=== PATIENT | female | born 1965 | race Caucasian/White ===

== ENCOUNTER 2020-11-06 18:00 | Inpatient (IN) | payer BC ==
[~2020-11-06] VITALS: Ht 167.6 cm; Wt 45.1 kg
[2020-11-06] MEDS: ringers solution, lacted 1,000 ML IV SCH (00:01)
[~2020-11-06 18:00] MED LIST: etomidate 2mg/ml inj. ONE; rocuronium 10mg/ml inj IV ONE; sod chloride 0.9% 10ml flush syringe IV ONE
[2020-11-06] MEDS ORDERED: propofol 1000mg/100ml bottle 100 ML IV ONE (18:08)
[2020-11-06] MEDS ORDERED: dexamethasone sod phosphate 10mg/ml inj ONE (18:11)
[2020-11-06] MEDS ORDERED: dexamethasone sod phosphate 10mg/ml inj IV ONE (18:25)
[2020-11-06] MEDS ORDERED: magnesium 2GM in 50ml NS 50 ML IV ONE ×2 (18:25→19:28)
[2020-11-06] MEDS ORDERED: MIDAZolam 5mg/ml 2ml vial IV ONE (18:25)
--- NOTE | 2020-11-06 18:33 | NUR ---
1759 arrival, hx of asthma, unresponsive, blood sugar 151, 18g L AC established relief captain. CPR started in field for 10 minutes, 1mg epi given and ROSC. 1803 20mg etomidate IV push given, 100mg memo given IV push. 180 intubated by ERP, 22 at teeth, RT at bedside. 180 OG placed 1812 5mg versed given IV push 1813 temp. sanders placed 1815 10mg decadron given IV push 1817 5mcg/kg/min propofol drip started. 181 central line started right side
--- NOTE | 2020-11-06 18:39 | NUR ---
rate changed down to 2.5mcg/kg/min prop drip.
--- NOTE | 2020-11-06 18:43 | NUR ---
propofol drip stopped. blood pressure 87/57
[2020-11-06 18:44] LABS: BASOPHILS # (AUTO) 0.1 X10'3 (0-0.2); BASOPHILS % (AUTO) 0.6 % (0-1); EOSINOPHILS % (AUTO) 10.2 % (0-6); LYMPHOCYTES # (AUTO) 3.7 X10'3 (1.1-4.8); LYMPHOCYTES % (AUTO) 36.6 % (21-51); MEAN CORPUSCULAR HEMOGLOBIN 31.4 PG (27.0-31.0); MEAN CORPUSCULAR HGB CONC 32.4 g/dL (33.0-36.5); MEAN PLATELET VOLUME 8.6 FL (7.4-10.4); MONOCYTES # (AUTO) 0.5 X10'3 (0-0.9); NEUTROPHILS # (AUTO) 4.8 X10'3 (1.8-7.7); NEUTROPHILS % (AUTO) 47.6 % (42-75); PLATELET COUNT 263 X10'3 (140-440); RED BLOOD COUNT 3.82 X10'6 (4.20-5.60); RED CELL DISTRIBUTION WIDTH 14.5 % (11.5-14.5); WHITE BLOOD COUNT 10.2 X10'3 (4.5-11.0)
--- NOTE | 2020-11-06 18:50 | NUR ---
1L NS bolus started
[2020-11-06 18:55] LABS: ABG BASE EXCESS -10.3 mmol/L (-2.0-2.0); ABG HCO3 15.9 mmol/L (22.0-26.0); ABG OXYGEN SATURATION 97.6 % (94-97); ABG PCO2 (T) 33.8 mmHg (32.0-45.0); ABG PO2 (T) 115.1 mmHg (75.0-100.0); FCOHb 0.3 % (0.0-3.9); FMetHb 0.2 % (0.0-1.5); FO2Hb 97.1 % (94-97); PATIENT TEMPERATURE 35.4; PEEP 5 cm H2O; RESPIRATORY RATE 20 b/min; TIDAL VOLUME 350 mL; TOTAL HEMOGLOBIN 12.6 G/dl (12.0-16.0)
[2020-11-06 18:55] LABS: ALANINE AMINOTRANSFERASE 33 U/L (12-78); ALBUMIN 3.2 G/DL (3.4-5.0); ALKALINE PHOSPHATASE 64 IU/L (46-116); ANION GAP 18 (8-16); ASPARTATE AMINO TRANSFERASE 36 U/L (10-37); BILIRUBIN,TOTAL 0.3 MG/DL (0.1-1.0); BLOOD UREA NITROGEN 10 MG/DL (7-18); BUN/CREATININE RATIO 9.9 (6.6-38.0); CALCIUM 7.9 MG/DL (8.5-10.1); CHLORIDE 103 MMOL/L (99-107); CREATININE 1.01 MG/DL (0.40-0.90); GLUCOSE 338 MG/DL (70-104); SODIUM 139 MMOL/L (135-145); TOTAL CARBON DIOXIDE 18.2 MMOL/L (24-32); TOTAL PROTEIN 6.3 G/DL (6.4-8.2); TRIGLYCERIDES 87 MG/DL (20-135); TROPONIN I < 0.04 NG/ML (0.0-0.05); eGFR 57 ML/MIN
--- NOTE | 2020-11-06 18:57 | NUR ---
Critical Lab: K+ is 2.8. Dr. Knox and primary RN will be notfied.
[2020-11-06 18:58] LABS: POTASSIUM 2.8 MMOL/L (3.5-5.1)
--- NOTE | 2020-11-06 18:59 | NUR ---
pt's at bedside. pt personal items with
[2020-11-06] MEDS: propofol 1000mg/100ml bottle 100 ML IV SCH ×4 (19:03→20:39)
[2020-11-06] MEDS: MIDAZolam 5mg/ml 2ml vial ONE ×2 (19:06→19:45)
[2020-11-06] MEDS ORDERED: normal saline 1000ml 1,000 ML IV ONE (19:10)
--- NOTE | 2020-11-06 19:11 | NUR ---
1L NS bolus given, second bag.
[2020-11-06] MEDS ORDERED: magnesium 2GM in 50ml NS 50 ML IV SCH (19:15)
[2020-11-06] MEDS ORDERED: potassium Cl 20 mEq/100mL bag IV ONE (19:15)
--- NOTE | 2020-11-06 19:18 | NUR ---
blood pressure 78/56, ERP notified, levo ordered.
[2020-11-06] MEDS ORDERED: NORepinephrine inj. 8 MG in dextrose 5%-water 242 ML IV ONE (19:20)
--- NOTE | 2020-11-06 19:25 | NUR ---
levo started by Fede RADER
[2020-11-06] MEDS: potassium Cl 10 mEq/100mL bag IV SCH ×2 (19:26→20:15)
--- NOTE | 2020-11-06 19:29 | NUR ---
appointment scheduler on video
--- NOTE | 2020-11-06 19:31 | NUR ---
report given to Fede RADER.
[2020-11-06 19:46] LABS: HEMOGLOBIN A1C 5.8 % (4.5-6.2)
[2020-11-06 19:54] LABS: PLATELET ESTIMATE NORMAL; TOTAL CELLS COUNTED 100
[2020-11-06 19:57] LABS: SMUDGE CELLS FEW
[2020-11-06] MEDS: NORepinephrine 8mg/ 250ml NS 250 ML IV SCH ×2 (20:10→20:40)
[2020-11-06] MEDS ORDERED: magnesium Cl slow-release 64mg tablet PO PRN (20:40)
[2020-11-06] MEDS ORDERED: magnesium 4gm in 100ml NS 100 ML IV PRN (20:40)
[2020-11-06] MEDS ORDERED: magnesium 2GM in 50ml NS 50 ML IV PRN (20:40)
[2020-11-06] MEDS ORDERED: PERFLUTREN PROTEIN-A MICROSPHR (Optison) 0.22 MG/ML 3ML VIAL IV ONE (20:40)
[2020-11-06] MEDS ORDERED: acetaminophen 325mg tablet PO PRN ×2 (20:40)
[2020-11-06] MEDS ORDERED: sodium phosphate inj. 15 MMOL in dextrose 5%-water 250 ML IV PRN (20:40)
[2020-11-06] MEDS ORDERED: ondansetron/PF 4mg/2ml inj IV PRN (20:40)
[2020-11-06] MEDS ORDERED: Neutra Phos packet PO PRN (20:40)
[2020-11-06] MEDS: K, MAG and/or Phos replacement - Verify level? MC SCH (20:40)
[2020-11-06] MEDS ORDERED: LIDOcaine 2% 10ml TOPICAL JELLY (Urojet) TP ONE (20:40)
[2020-11-06] MEDS ORDERED: potassium Cl 40MEQ/250ML bag 270 ML IV PRN (20:40)
[2020-11-06] MEDS ORDERED: potassium Cl 40MEQ/1/2NS 520ml 520 ML IV PRN (20:40)
[2020-11-06] MEDS ORDERED: sodium phosphate inj. 30 MMOL in dextrose 5%-water 250 ML IV PRN (20:40)
[2020-11-06 21:23] LABS: CLARITY,URINE CLEAR (Clear); GLUCOSE, URINE >=1000 mg/dl (Neg); KETONES,URINE NEGATIVE (Neg); LEUKOCYTE ESTERASE ,URINE NEGATIVE (Neg); NITRITES, URINE NEGATIVE (Neg); OCCULT BLOOD,URINE MODERATE (Neg); PH,URINE 5.5 (4.8-8.0); PROTEIN,URINE TRACE mg/dl (Neg); UROBILINOGEN,URINE 0.2 E.U/dL (0.2-1.0)
[2020-11-06 21:24] LABS: COLOR,URINE STRAW (Yellow); UA COLLECTION TYPE OTHER
[2020-11-06 21:26] LABS: URINE HCG NEGATIVE (NEG)
[2020-11-06 21:34] LABS: WBC,URINE 0-4 /HPF (0-4)
[2020-11-06 21:35] LABS: BACTERIA,URINE NONE SEEN /HPF (Neg); HYALINE CASTS 0-3 /LPF (NEGATIVE); MUCUS STRANDS FEW /LPF (Neg); RBC,URINE 0-2 /HPF (0-2); SQUAMOUS EPITHELIAL CELL,UR NONE SEEN /LPF (FEW)
[2020-11-06 22:34] LABS: MAGNESIUM 2.6 MG/DL (1.5-2.4)
[2020-11-06 22:49] LABS: ALBUMIN 3.6 G/DL (3.4-5.0); ANION GAP 11 (8-16); BLOOD UREA NITROGEN 11 MG/DL (7-18); BUN/CREATININE RATIO 14.5 (6.6-38.0); CALCIUM 7.5 MG/DL (8.5-10.1); CHLORIDE 104 MMOL/L (99-107); CREATININE 0.76 MG/DL (0.40-0.90); GLUCOSE 332 MG/DL (70-104); MAGNESIUM 3.4 MG/DL (1.5-2.4); PHOSPHORUS 2.1 MG/DL (2.3-4.5); POTASSIUM 3.9 MMOL/L (3.5-5.1); SODIUM 136 MMOL/L (135-145); TOTAL CARBON DIOXIDE 20.8 MMOL/L (24-32); eGFR 79 ML/MIN
[2020-11-06 23:30] VITALS: BP 128/85
[2020-11-07] VITALS (24 sets, daily range): BP systolic 91–148; BP diastolic 64–91
[2020-11-07 00:46] LABS: ALANINE AMINOTRANSFERASE 57 U/L (12-78); ALBUMIN 3.4 G/DL (3.4-5.0); ALKALINE PHOSPHATASE 76 IU/L (46-116); ANION GAP 11 (8-16); ASPARTATE AMINO TRANSFERASE 58 U/L (10-37); BILIRUBIN,TOTAL 0.4 MG/DL (0.1-1.0); BLOOD UREA NITROGEN 10 MG/DL (7-18); BUN/CREATININE RATIO 14.9 (6.6-38.0); CALCIUM 7.5 MG/DL (8.5-10.1); CHLORIDE 104 MMOL/L (99-107); CREATININE 0.67 MG/DL (0.40-0.90); GLUCOSE 331 MG/DL (70-104); PHOSPHORUS 2.6 MG/DL (2.3-4.5); POTASSIUM 3.6 MMOL/L (3.5-5.1); SODIUM 134 MMOL/L (135-145); TOTAL CARBON DIOXIDE 19.2 MMOL/L (24-32); TOTAL PROTEIN 6.8 G/DL (6.4-8.2); eGFR > 90 ML/MIN
[2020-11-07 01:00] LABS: BASOPHILS % (AUTO) 0.1 % (0-1); EOSINOPHILS % (AUTO) 0.2 % (0-6); HEMOGLOBIN 12.8 g/dl (12.0-16.0); LYMPHOCYTES # (AUTO) 0.5 X10'3 (1.1-4.8); LYMPHOCYTES % (AUTO) 3.1 % (21-51); MEAN CORPUSCULAR HEMOGLOBIN 31.3 PG (27.0-31.0); MEAN CORPUSCULAR HGB CONC 33.6 g/dL (33.0-36.5); MEAN CORPUSCULAR VOLUME 93.2 FL (78-98); MEAN PLATELET VOLUME 8.3 FL (7.4-10.4); MONOCYTES # (AUTO) 0.5 X10'3 (0-0.9); MONOCYTES % (AUTO) 3.2 % (2-12); NEUTROPHILS # (AUTO) 14.2 X10'3 (1.8-7.7); NEUTROPHILS % (AUTO) 93.4 % (42-75); PLATELET COUNT 284 X10'3 (140-440); RED BLOOD COUNT 4.08 X10'6 (4.20-5.60); RED CELL DISTRIBUTION WIDTH 13.7 % (11.5-14.5); WHITE BLOOD COUNT 15.3 X10'3 (4.5-11.0)
[2020-11-07 01:06] LABS: TRIGLYCERIDES 91 MG/DL (20-135)
[2020-11-07] MEDS: ipratropium/albuterol 3ml nebule NEB SCH ×7 (01:07→23:29)
[2020-11-07] MEDS: NORepinephrine 8mg/ 250ml NS 250 ML IV SCH ×2 (01:32→08:24)
[2020-11-07] MEDS ORDERED: LORazepam 2 mg/ml vial IV ONE (02:05)
[2020-11-07] MEDS ORDERED: LORazepam 2 mg/ml vial ONE (02:06)
[2020-11-07] MEDS ORDERED: MIDAZolam inj 50 MG in normal saline 50ml IV soln 40 ML IV SCH (02:10)
[2020-11-07] MEDS ORDERED: LORazepam 2 mg/ml vial IM PRN (02:10)
[2020-11-07] MEDS: midazolam 100mg in NS 100ml 100 ML IV PRN (02:30)
[2020-11-07] MEDS: propofol 1000mg/100ml bottle 100 ML IV SCH (02:44)
[2020-11-07 03:08] LABS: ABG BASE EXCESS -7.3 mmol/L (-2.0-2.0); ABG HCO3 16.1 mmol/L (22.0-26.0); ABG PCO2 (T) 22.8 mmHg (32.0-45.0); ABG PO2 (T) 152.3 mmHg (75.0-100.0); FCOHb 0.3 % (0.0-3.9); FMetHb 0.3 % (0.0-1.5); FO2Hb 98.4 % (94-97); PATIENT TEMPERATURE 32.8; PEEP 5 cm H2O; RESPIRATORY RATE 20 b/min; TIDAL VOLUME 350 mL; TOTAL HEMOGLOBIN 13.4 G/dl (12.0-16.0)
[2020-11-07 03:11] LABS: OXYGEN SATURATION (MIXED VEN) 77.8 % (60-80); PO2 MIXED VENOUS (TEMP COR) 30.9 mmHg (35-46)
[2020-11-07] MEDS: mineral oil/petrolatum ophthal oint EACHEYE SCH ×6 (04:00→20:30)
[2020-11-07] MEDS: ringers solution, lacted 1,000 ML IV SCH ×3 (04:00→17:09)
[2020-11-07] MEDS ORDERED: dextrose ORAL solution 15 GM/59 ML bottle PO PRN ×2 (05:05)
[2020-11-07] MEDS ORDERED: dextrose 50%-water 50ml dispensing syringe IV PRN ×2 (05:05)
[2020-11-07] MEDS ORDERED: glucagon, human recombinant 1mg kit SUBCUT PRN (05:05)
[2020-11-07 05:55] LABS: BASOPHILS % (AUTO) 0 % (0-1); EOSINOPHILS % (AUTO) 0.2 % (0-6); HEMATOCRIT 38.5 % (35.0-45.0); HEMOGLOBIN 12.9 g/dl (12.0-16.0); LYMPHOCYTES # (AUTO) 0.5 X10'3 (1.1-4.8); MEAN CORPUSCULAR HGB CONC 33.4 g/dL (33.0-36.5); MEAN CORPUSCULAR VOLUME 92.9 FL (78-98); MONOCYTES # (AUTO) 0.3 X10'3 (0-0.9); MONOCYTES % (AUTO) 2.4 % (2-12); NEUTROPHILS # (AUTO) 11.4 X10'3 (1.8-7.7); NEUTROPHILS % (AUTO) 93.4 % (42-75); PLATELET COUNT 303 X10'3 (140-440); RED BLOOD COUNT 4.15 X10'6 (4.20-5.60); RED CELL DISTRIBUTION WIDTH 13.5 % (11.5-14.5); WHITE BLOOD COUNT 12.2 X10'3 (4.5-11.0)
[2020-11-07 06:13] LABS: ALANINE AMINOTRANSFERASE 55 U/L (12-78); ALBUMIN 3.2 G/DL (3.4-5.0); ALKALINE PHOSPHATASE 74 IU/L (46-116); ANION GAP 11 (8-16); ASPARTATE AMINO TRANSFERASE 43 U/L (10-37); BILIRUBIN,TOTAL 0.3 MG/DL (0.1-1.0); BLOOD UREA NITROGEN 11 MG/DL (7-18); BUN/CREATININE RATIO 16.7 (6.6-38.0); CALCIUM 7.8 MG/DL (8.5-10.1); CHLORIDE 106 MMOL/L (99-107); CREATININE 0.66 MG/DL (0.40-0.90); GLUCOSE 308 MG/DL (70-104); POTASSIUM 4.9 MMOL/L (3.5-5.1); SODIUM 135 MMOL/L (135-145); TOTAL CARBON DIOXIDE 18.2 MMOL/L (24-32); TOTAL PROTEIN 6.5 G/DL (6.4-8.2); eGFR > 90 ML/MIN
[2020-11-07 06:23] LABS: MAGNESIUM 2.6 MG/DL (1.5-2.4); PHOSPHORUS 2.3 MG/DL (2.3-4.5)
[2020-11-07] MEDS: potassium Cl 40MEQ/250ML bag 270 ML IV PRN ×2 (06:26→15:35)
--- NOTE | 2020-11-07 06:30 | NUR ---
Patient in room ICU 2041. I have received report from Deuce RADER and had the opportunity to ask questions and assume patient care.
[2020-11-07] MEDS ORDERED: CISatracurium **Bolus** 2 mg/ml inj IV PRN (07:45)
[2020-11-07] MEDS ORDERED: famotidine 20mg tablet PO SCH (08:00)
[2020-11-07] MEDS: K, MAG and/or Phos replacement - Verify level? MC SCH (08:00)
[2020-11-07] MEDS ORDERED: enoxaparin 40mg/0.4ml syringe SUBCUT SCH (08:00)
[2020-11-07 08:05] LABS: ALBUMIN 3.2 G/DL (3.4-5.0); ANION GAP 10 (8-16); BLOOD UREA NITROGEN 10 MG/DL (7-18); BUN/CREATININE RATIO 14.1 (6.6-38.0); CALCIUM 7.9 MG/DL (8.5-10.1); CHLORIDE 110 MMOL/L (99-107); CREATININE 0.71 MG/DL (0.40-0.90); GLUCOSE 220 MG/DL (70-104); MAGNESIUM 2.6 MG/DL (1.5-2.4); POTASSIUM 5.3 MMOL/L (3.5-5.1); SODIUM 139 MMOL/L (135-145); TOTAL CARBON DIOXIDE 18.6 MMOL/L (24-32); TRIGLYCERIDES 49 MG/DL (20-135); eGFR 85 ML/MIN
[2020-11-07] MEDS: famotidine/PF 10 mg/ml inj IV SCH ×2 (08:21→20:30)
[2020-11-07] MEDS: methylPREDNISolone sod succ/PF 40mg inj. IV SCH ×2 (08:21→20:30)
[2020-11-07] MEDS: FENTANYL-0.9 % NACL/PF 100 ML IV PRN (08:21)
[2020-11-07 09:27] LABS: OXYGEN SATURATION (MIXED VEN) 75.7 % (60-80); PO2 MIXED VENOUS (TEMP COR) 30.7 mmHg (35-46)
[2020-11-07 09:29] LABS: ABG BASE EXCESS -6.2 mmol/L (-2.0-2.0); ABG HCO3 17.7 mmol/L (22.0-26.0); ABG PCO2 (T) 26.1 mmHg (32.0-45.0); ABG PO2 (T) 145.8 mmHg (75.0-100.0); FCOHb 0.3 % (0.0-3.9); FMetHb 0.2 % (0.0-1.5); FO2Hb 98.5 % (94-97); PATIENT TEMPERATURE 33.2; PEEP 5 cm H2O; RESPIRATORY RATE 20 b/min; TIDAL VOLUME 350 mL; TOTAL HEMOGLOBIN 13.8 G/dl (12.0-16.0)
[2020-11-07] MEDS ORDERED: ALBU18HF2 IH (10:00)
[2020-11-07] MEDS: CISatracurium besylate inj. 100 MG in normal saline 100ml IV soln 90 ML IV PRN (10:35)
[2020-11-07] MEDS ORDERED: levetiracetam-NS 1000mg/100ml 100 ML IV STA (10:54)
--- NOTE | 2020-11-07 10:58 | NUR ---
Initial: Pt with h/o asthma admitted s/p cardiac arrest. Pt emergently intubated in ED, currently being cooled. Serum K elevated at this time following replacement d/t hypokalemia on admit. Pt documented with an OG tube in place, no TF consult at this time. See TF recommendations below for if expected prolonged intubation and to receive nutrition support. Noted pt with a low BMI using scaled wt of 44.5 kg. No wt hx in EMR and unable to obtain information from pt d/t intubation. Poor visualization of pt during critical care rounds d/t blankets and EEG monitor. Pt appears well developed and well nourished per ED report. Pt with a low Cuauhtemoc of 10, no edema or wounds per physical assessment. LBM 6/10, PRN bowel care available. Will continue to follow closely. Recommendations: 1) IF TF, continuous Vital AF with goal rate of 60 mL/hr. To begin at 20 mL/hr and advance by 20 mL Q8H as tolerated to goal rate 2) IF TF, prealbumin q Tuesday/; daily weights 3) Routine bowel care Addendum: 11/07/20 at [address] Amended: Links added.
[2020-11-07 12:44] LABS: CLARITY,URINE SLIGHTLY CLOUDY (Clear); COLOR,URINE STRAW (Yellow); GLUCOSE, URINE 100 mg/dl (Neg); KETONES,URINE 15 mg/dl (Neg); LEUKOCYTE ESTERASE ,URINE NEGATIVE (Neg); NITRITES, URINE NEGATIVE (Neg); OCCULT BLOOD,URINE LARGE (Neg); PH,URINE 6.5 (4.8-8.0); PROTEIN,URINE NEGATIVE (Neg); UROBILINOGEN,URINE 0.2 E.U/dL (0.2-1.0)
[2020-11-07 12:45] LABS: UA COLLECTION TYPE NON-SPECIFIED
[2020-11-07 13:02] LABS: BACTERIA,URINE NONE SEEN /HPF (Neg); MUCUS STRANDS NONE SEEN /LPF (Neg); RBC,URINE 20-50 /HPF (0-2); SQUAMOUS EPITHELIAL CELL,UR NONE SEEN /LPF (FEW); WBC,URINE NONE SEEN /HPF (0-4)
[2020-11-07 13:37] LABS: ALBUMIN 3.4 G/DL (3.4-5.0); ANION GAP 12 (8-16); BLOOD UREA NITROGEN 7 MG/DL (7-18); BUN/CREATININE RATIO 23.3 (6.6-38.0); CALCIUM 8.3 MG/DL (8.5-10.1); CHLORIDE 107 MMOL/L (99-107); GLUCOSE 148 MG/DL (70-104); MAGNESIUM 2.1 MG/DL (1.5-2.4); POTASSIUM 3.2 MMOL/L (3.5-5.1); SODIUM 138 MMOL/L (135-145); TOTAL CARBON DIOXIDE 19.3 MMOL/L (24-32); eGFR > 90 ML/MIN
[2020-11-07 15:25] LABS: OXYGEN SATURATION (MIXED VEN) 68.1 % (60-80); PO2 MIXED VENOUS (TEMP COR) 23.8 mmHg (35-46)
[2020-11-07 15:27] LABS: ABG BASE EXCESS -3.5 mmol/L (-2.0-2.0); ABG HCO3 19.1 mmol/L (22.0-26.0); ABG OXYGEN SATURATION 98.5 % (94-97); ABG PCO2 (T) 22.7 mmHg (32.0-45.0); ABG PO2 (T) 106.6 mmHg (75.0-100.0); FCOHb 0.3 % (0.0-3.9); FMetHb 0.3 % (0.0-1.5); FO2Hb 97.9 % (94-97); PATIENT TEMPERATURE 32.3; PEEP 5 cm H2O; RESPIRATORY RATE 20 b/min; TIDAL VOLUME 350 mL; TOTAL HEMOGLOBIN 13.6 G/dl (12.0-16.0)
[2020-11-07] MEDS ORDERED: heparin 10,000 units/1 ML INJ IV PRN (15:55)
[2020-11-07] MEDS ORDERED: aspirin 325mg tablet OGT ONE (15:55)
[2020-11-07] MEDS ORDERED: heparin 10,000 units/1 ML INJ IV ONE (16:25)
[2020-11-07] MEDS: heparin 25,000 UNIT/250ml bag 250 ML IV SCH (16:39)
[2020-11-07 17:28] LABS: COLOR,URINE STRAW (Yellow); GLUCOSE, URINE 100 mg/dl (Neg); KETONES,URINE TRACE mg/dl (Neg); LEUKOCYTE ESTERASE ,URINE NEGATIVE (Neg); NITRITES, URINE NEGATIVE (Neg); OCCULT BLOOD,URINE LARGE (Neg); PROTEIN,URINE NEGATIVE (Neg); UROBILINOGEN,URINE 0.2 E.U/dL (0.2-1.0)
[2020-11-07 17:29] LABS: CLARITY,URINE SLIGHTLY CLOUDY (Clear); UA COLLECTION TYPE NON-SPECIFIED
[2020-11-07 17:32] LABS: BACTERIA,URINE NONE SEEN /HPF (Neg); MUCUS STRANDS NONE SEEN /LPF (Neg); SQUAMOUS EPITHELIAL CELL,UR FEW /LPF (FEW); WBC,URINE NONE SEEN /HPF (0-4)
--- NOTE | 2020-11-07 17:43 | NUR ---
Patient with PERRL 4 mm. Noted at the beginning of the shift with vigorous shivering. Started on Nimbex drip. After shivering controlled, able to detect seizure activity with BIS monitor. EEG monitoring started and tele neurology consulted. Seizure activity noted and Keppra started. Targeted temperature management in process. Patient at goal temperature. EF 15%. Dr. Cartwright in to consult.
[2020-11-07] MEDS: LORazepam 2 mg/ml vial IV PRN (18:03)
--- NOTE | 2020-11-07 18:28 | NUR ---
Problems reprioritized. Patient report given, questions answered & plan of care reviewed with Juli RADER.
--- NOTE | 2020-11-07 18:30 | NUR ---
Patient in room ICU 2041. I have received report from Zayra RADER and had the opportunity to ask questions and assume patient care. Pt's remains at bedside, plan of care discussed and questions answered.
[2020-11-07 19:59] LABS: ALBUMIN 3.1 G/DL (3.4-5.0); ANION GAP 9 (8-16); BLOOD UREA NITROGEN 5 MG/DL (7-18); BUN/CREATININE RATIO 17.2 (6.6-38.0); CALCIUM 8.1 MG/DL (8.5-10.1); CHLORIDE 108 MMOL/L (99-107); CREATININE 0.29 MG/DL (0.40-0.90); GLUCOSE 127 MG/DL (70-104); MAGNESIUM 1.8 MG/DL (1.5-2.4); POTASSIUM 3.9 MMOL/L (3.5-5.1); SODIUM 138 MMOL/L (135-145); eGFR > 90 ML/MIN
[2020-11-07] MEDS ORDERED: enoxaparin 40mg/0.4ml syringe SQ SCH (20:00)
[2020-11-07] MEDS: carVEDilol 3.125mg tablet OGT SCH (20:30)
[2020-11-07] MEDS: levetiracetam-NS 1000mg/100ml 100 ML IV SCH (20:30)
[2020-11-07] MEDS: atorvastatin 20mg tablet OGT SCH (20:32)
[2020-11-07 20:35] LABS: PHOSPHORUS 2.8 MG/DL (2.3-4.5)
--- NOTE | 2020-11-07 23:33 | NUR ---
Called to bedside for low volumes on vent Addendum: 11/07/20 at 2346 by Bill Dorantes RT Low volumes with high pressures. Patient doifficult to bag. Breath sounds clear/diminished. CXR done with nothing of note. Nebulizer treatment started with improvement in volumes. Breath now wheezy and tight. DIOR contacted , new orders to follow. Addendum: 11/07/20 at 2348 by Bill Dorantes RT Amended: Links added.
--- NOTE | 2020-11-07 23:41 | NUR ---
Pt turned to remove cooling pads when she suddenly was not getting her Tidal Volumes. Began to bag pt and RT was paged. Pt was difficult to bag, very tight. No secretions with deep suction, lung sounds diminished. Tube placement checked, X ray done. Respiratory treatment started. Pt's lung sounds now tight and wheezy. notified and new orders received.
[2020-11-08] VITALS (24 sets, daily range): BP systolic 84–119; BP diastolic 50–72
[2020-11-08 00:08] LABS: OXYGEN SATURATION (MIXED VEN) 71.2 % (60-80); PO2 MIXED VENOUS (TEMP COR) 29.6 mmHg (35-46)
[2020-11-08 00:12] LABS: ABG BASE EXCESS -5.6 mmol/L (-2.0-2.0); ABG HCO3 20.5 mmol/L (22.0-26.0); ABG OXYGEN SATURATION 88.9 % (94-97); ABG PCO2 (T) 35.1 mmHg (32.0-45.0); FCOHb 0.3 % (0.0-3.9); FMetHb 0.2 % (0.0-1.5); FO2Hb 88.5 % (94-97); PATIENT TEMPERATURE 32.6; PEEP 5 cm H2O; RESPIRATORY RATE 20 b/min; TIDAL VOLUME 350 mL; TOTAL HEMOGLOBIN 13.5 G/dl (12.0-16.0)
[2020-11-08] MEDS: albuterol 2.5 MG/3 ML nebule CONTNEB PRN ×2 (00:23→03:48)
[2020-11-08] MEDS: midazolam 100mg in NS 100ml 100 ML IV PRN (00:34)
[2020-11-08] MEDS: LORazepam 2 mg/ml vial IV PRN (00:34)
[2020-11-08] MEDS: FENTANYL-0.9 % NACL/PF 100 ML IV PRN (00:34)
[2020-11-08] MEDS: mineral oil/petrolatum ophthal oint EACHEYE SCH ×6 (00:34→19:16)
[2020-11-08] MEDS: ringers solution, lacted 1,000 ML IV SCH ×3 (00:35→08:59)
[2020-11-08] MEDS: CISatracurium besylate inj. 100 MG in normal saline 100ml IV soln 90 ML IV PRN (02:05)
--- NOTE | 2020-11-08 02:14 | NUR ---
Pt has not improved, needs to be bagged for her to get volumes. Dr Jefferson aware, new orders being placed. Levophed restarted for low BP.
[2020-11-08 02:17] LABS: BASOPHILS % (AUTO) 0 % (0-1); EOSINOPHILS % (AUTO) 0.1 % (0-6); HEMATOCRIT 36.3 % (35.0-45.0); HEMOGLOBIN 11.9 g/dl (12.0-16.0); LYMPHOCYTES # (AUTO) 0.7 X10'3 (1.1-4.8); LYMPHOCYTES % (AUTO) 5.1 % (21-51); MEAN CORPUSCULAR HEMOGLOBIN 30.6 PG (27.0-31.0); MEAN CORPUSCULAR HGB CONC 32.7 g/dL (33.0-36.5); MEAN CORPUSCULAR VOLUME 93.6 FL (78-98); MONOCYTES # (AUTO) 0.5 X10'3 (0-0.9); MONOCYTES % (AUTO) 3.6 % (2-12); NEUTROPHILS # (AUTO) 13.2 X10'3 (1.8-7.7); NEUTROPHILS % (AUTO) 91.2 % (42-75); PLATELET COUNT 243 X10'3 (140-440); RED BLOOD COUNT 3.88 X10'6 (4.20-5.60); RED CELL DISTRIBUTION WIDTH 14.2 % (11.5-14.5); WHITE BLOOD COUNT 14.5 X10'3 (4.5-11.0)
[2020-11-08] MEDS ORDERED: magnesium 4gm in 100ml NS 100 ML IV ONE (02:20)
[2020-11-08] MEDS ORDERED: methylPREDNISolone sod succ 125mg/2ml vial IV ONE (02:20)
[2020-11-08] MEDS: ipratropium/albuterol 3ml nebule NEB SCH ×6 (02:28→23:00)
--- NOTE | 2020-11-08 02:50 | NUR ---
Pt continues to have facial twitching, possible seizure activity? Versed has been increased and Ativan given once with minimal improvement. Pt is in rewarming stage, Vent heater turned back on, room temp increased and blankets applied, however pt is dropping in temp rather than increasing. aware.
[2020-11-08 02:56] LABS: ALANINE AMINOTRANSFERASE 34 U/L (12-78); ALBUMIN 2.6 G/DL (3.4-5.0); ALKALINE PHOSPHATASE 54 IU/L (46-116); ANION GAP 10 (8-16); ASPARTATE AMINO TRANSFERASE 33 U/L (10-37); BILIRUBIN,TOTAL 0.3 MG/DL (0.1-1.0); BLOOD UREA NITROGEN 5 MG/DL (7-18); CALCIUM 7.4 MG/DL (8.5-10.1); CHLORIDE 108 MMOL/L (99-107); CHOL/HDL RATIO 2.9 (0.00-4.99); CHOLESTEROL 175 MG/DL (0-200); CREATININE 0.25 MG/DL (0.40-0.90); GLUCOSE 148 MG/DL (70-104); HDL CHOLESTEROL 61 MG/DL (35-60); LDL CHOLESTEROL 95 MG/DL (50-100); MAGNESIUM 1.7 MG/DL (1.5-2.4); PHOSPHORUS 3.5 MG/DL (2.3-4.5); SODIUM 139 MMOL/L (135-145); TOTAL CARBON DIOXIDE 20.7 MMOL/L (24-32); TOTAL PROTEIN 5.3 G/DL (6.4-8.2); TRIGLYCERIDES 76 MG/DL (20-135); eGFR > 90 ML/MIN
[2020-11-08 04:31] LABS: ABG BASE EXCESS -7.5 mmol/L (-2.0-2.0); ABG HCO3 19.8 mmol/L (22.0-26.0); ABG OXYGEN SATURATION 99.3 % (94-97); ABG PO2 (T) 238.8 mmHg (75.0-100.0); FCOHb 0.3 % (0.0-3.9); FMetHb 0.4 % (0.0-1.5); FO2Hb 98.6 % (94-97); PATIENT TEMPERATURE 32.8; PEEP 5 cm H2O; RESPIRATORY RATE 20 b/min; TIDAL VOLUME 350 mL; TOTAL HEMOGLOBIN 13.3 G/dl (12.0-16.0)
[2020-11-08] MEDS ORDERED: sodium bicarbonate (8.4%) inj. 150 MEQ in dextrose 5%-water 1,000 ML IV SCH (04:40)
[2020-11-08] MEDS: albuterol 2.5 MG/3 ML nebule CONTNEB SCH ×18 (04:56→23:35)
[2020-11-08 05:15] LABS: ABG BASE EXCESS -6.8 mmol/L (-2.0-2.0); ABG OXYGEN SATURATION 99.2 % (94-97); ABG PCO2 (T) 32.7 mmHg (32.0-45.0); ABG PO2 (T) 213.2 mmHg (75.0-100.0); FCOHb 0.3 % (0.0-3.9); FMetHb 0.3 % (0.0-1.5); FO2Hb 98.6 % (94-97); PATIENT TEMPERATURE 32.9; PEEP 5 cm H2O; RESPIRATORY RATE 18 b/min; TIDAL VOLUME 400 mL; TOTAL HEMOGLOBIN 13.4 G/dl (12.0-16.0)
--- NOTE | 2020-11-08 05:58 | NUR ---
Orders received after morning rounds. Pt continues to need bagged intermittently when she does not get her TV from the vent.
--- NOTE | 2020-11-08 06:19 | NUR ---
Problems reprioritized. Patient report given, questions answered & plan of care reviewed with Zayra RADER.
[2020-11-08] MEDS: methylPREDNISolone sod succ/PF 40mg inj. IV SCH ×2 (07:41→20:15)
[2020-11-08] MEDS: famotidine/PF 10 mg/ml inj IV SCH ×2 (07:41→20:15)
[2020-11-08] MEDS: aspirin 81mg tab.chew OGT SCH (07:41)
[2020-11-08] MEDS: carVEDilol 3.125mg tablet OGT SCH ×2 (07:49→20:00)
[2020-11-08] MEDS: K, MAG and/or Phos replacement - Verify level? MC SCH (08:00)
[2020-11-08] MEDS: levetiracetam-NS 1000mg/100ml 100 ML IV SCH ×2 (08:11→20:15)
[2020-11-08] MEDS ORDERED: magnesium 2GM in 50ml NS 50 ML IV PRN (08:20)
[2020-11-08] MEDS ORDERED: magnesium 4gm in 100ml NS 100 ML IV PRN (08:20)
[2020-11-08 08:33] LABS: ABG BASE EXCESS -5.9 mmol/L (-2.0-2.0); ABG HCO3 20.4 mmol/L (22.0-26.0); ABG OXYGEN SATURATION 95.4 % (94-97); ABG PCO2 (T) 37.2 mmHg (32.0-45.0); ABG PO2 (T) 67.8 mmHg (75.0-100.0); ALLEN'S TEST Modified; FCOHb 0.3 % (0.0-3.9); FMetHb 0.3 % (0.0-1.5); FO2Hb 94.8 % (94-97); PATIENT TEMPERATURE 33.5; PEEP 5 cm H2O; RESPIRATORY RATE 18 b/min; TIDAL VOLUME 370 mL; TOTAL HEMOGLOBIN 12.7 G/dl (12.0-16.0)
[2020-11-08] MEDS: propofol 1000mg/100ml bottle 100 ML IV SCH ×3 (09:11→23:19)
[2020-11-08 09:12] LABS: ALBUMIN 2.5 G/DL (3.4-5.0); ANION GAP 9 (8-16); BLOOD UREA NITROGEN 6 MG/DL (7-18); CALCIUM 7.5 MG/DL (8.5-10.1); CHLORIDE 107 MMOL/L (99-107); CREATININE 0.43 MG/DL (0.40-0.90); GLUCOSE 250 MG/DL (70-104); MAGNESIUM 2.7 MG/DL (1.5-2.4); PHOSPHORUS 3.7 MG/DL (2.3-4.5); POTASSIUM 3.5 MMOL/L (3.5-5.1); SODIUM 139 MMOL/L (135-145); TOTAL CARBON DIOXIDE 22.6 MMOL/L (24-32); eGFR > 90 ML/MIN
[2020-11-08 09:17] LABS: TROPONIN I 1.73 NG/ML (0.0-0.05)
[2020-11-08] MEDS: NORepinephrine 8mg/ 250ml NS 250 ML IV SCH ×3 (09:50→20:29)
[2020-11-08] MEDS: lisinopril 2.5mg tablet PO SCH (11:57)
[2020-11-08] MEDS ORDERED: normal saline 1000ml 1,000 ML IV ONE (12:45)
[2020-11-08] MEDS: sodium chloride 0.45% 1,000 ML IV SCH ×4 (12:45→22:14)
[2020-11-08] MEDS: normal saline 1000ml 1,000 ML IV SCH ×3 (13:20→19:14)
[2020-11-08 14:08] LABS: ALBUMIN 2.5 G/DL (3.4-5.0); ANION GAP 7 (8-16); BLOOD UREA NITROGEN 6 MG/DL (7-18); BUN/CREATININE RATIO 12.8 (6.6-38.0); CHLORIDE 110 MMOL/L (99-107); CREATININE 0.47 MG/DL (0.40-0.90); GLUCOSE 231 MG/DL (70-104); MAGNESIUM 2.3 MG/DL (1.5-2.4); PHOSPHORUS 3.3 MG/DL (2.3-4.5); POTASSIUM 3.7 MMOL/L (3.5-5.1); SODIUM 141 MMOL/L (135-145); TOTAL CARBON DIOXIDE 24.2 MMOL/L (24-32); eGFR > 90 ML/MIN
[2020-11-08] MEDS: potassium Cl 20mEq/100mL bag 100 ML IV PRN (14:23)
[2020-11-08 14:25] LABS: ALANINE AMINOTRANSFERASE 35 U/L (12-78); ALBUMIN/GLOBULIN RATIO 0.9 (1.1-1.5); ALKALINE PHOSPHATASE 52 IU/L (46-116); ASPARTATE AMINO TRANSFERASE 41 U/L (10-37); BILIRUBIN,TOTAL 0.2 MG/DL (0.1-1.0); TOTAL PROTEIN 5.2 G/DL (6.4-8.2)
[2020-11-08 14:52] LABS: TROPONIN I 1.77 NG/ML (0.0-0.05)
[2020-11-08] MEDS: guaiFENesin/DM 10ml UD oral syrup OGT SCH ×2 (16:57→20:16)
[2020-11-08 17:07] LABS: ABG BASE EXCESS -2.7 mmol/L (-2.0-2.0); ABG HCO3 21.6 mmol/L (22.0-26.0); ABG OXYGEN SATURATION 98.7 % (94-97); ABG PCO2 (T) 33.7 mmHg (32.0-45.0); ABG PO2 (T) 155.7 mmHg (75.0-100.0); FCOHb 0.3 % (0.0-3.9); FMetHb 0.3 % (0.0-1.5); FO2Hb 98.1 % (94-97); PATIENT TEMPERATURE 35.6; PEEP 5 cm H2O; RESPIRATORY RATE 16 b/min; TIDAL VOLUME 535 mL; TOTAL HEMOGLOBIN 11.8 G/dl (12.0-16.0)
--- NOTE | 2020-11-08 17:41 | NUR ---
pt not ventilating on ventilator and is getting increasingly harder to bad 7ml albuterol instilled directly into ETT. post continuous bagging approx 4minutes pt sats increased from 89-[address] and was able [address] pt back on ventilator. Addendum: 11/08/20 at 1743 by Kinsey Ng RT Amended: Links added.
--- NOTE | 2020-11-08 18:11 | NUR ---
Pupils still reactive, sluggish. No response to noxious stimuli. Continues to have episodes of severe bronchospasms, increased with repositioning. Nimbex off, passive re-warming in progress. Continuous EEG monitoring continues.
--- NOTE | 2020-11-08 18:30 | NUR ---
Patient in room ICU 2041. I have received report from Zayra RADER and had the opportunity to ask questions and assume patient care.
[2020-11-08] MEDS: atorvastatin 20mg tablet OGT SCH (20:16)
[2020-11-08] MEDS ORDERED: polyethylene glycol 3350 17gm powd pack PO PRN (20:40)
[2020-11-08 20:50] LABS: ALANINE AMINOTRANSFERASE 35 U/L (12-78); ALBUMIN 2.6 G/DL (3.4-5.0); ALKALINE PHOSPHATASE 52 IU/L (46-116); ANION GAP 8 (8-16); ASPARTATE AMINO TRANSFERASE 44 U/L (10-37); BILIRUBIN,TOTAL 0.1 MG/DL (0.1-1.0); CHLORIDE 112 MMOL/L (99-107); CREATININE 0.39 MG/DL (0.40-0.90); GLUCOSE 167 MG/DL (70-104); SODIUM 143 MMOL/L (135-145); TOTAL CARBON DIOXIDE 22.7 MMOL/L (24-32); TOTAL PROTEIN 5.3 G/DL (6.4-8.2); eGFR > 90 ML/MIN
[2020-11-08 21:05] LABS: BLOOD UREA NITROGEN 4 MG/DL (7-18); BUN/CREATININE RATIO 10.3 (6.6-38.0)
[2020-11-08 21:42] LABS: MAGNESIUM 2.2 MG/DL (1.5-2.4); PHOSPHORUS 2.5 MG/DL (2.3-4.5)
[2020-11-09] VITALS (24 sets, daily range): BP systolic 94–121; BP diastolic 49–68
[2020-11-09] MEDS: guaiFENesin/DM 10ml UD oral syrup OGT SCH ×6 (00:02→21:11)
[2020-11-09] MEDS: mineral oil/petrolatum ophthal oint EACHEYE SCH ×6 (00:02→20:00)
[2020-11-09] MEDS: FENTANYL-0.9 % NACL/PF 100 ML IV PRN ×2 (00:02→21:36)
[2020-11-09] MEDS: sodium chloride 0.45% 1,000 ML IV SCH ×4 (00:13→06:38)
[2020-11-09] MEDS: normal saline 1000ml 1,000 ML IV SCH ×6 (00:13→11:14)
--- NOTE | 2020-11-09 00:28 | NUR ---
Pt had been doing well with recovering from bronchospasms on the vent, had not required manual bagging. She has had Minimal stimulation and pt has not been turned due to instability. Bed/mattress support has been adjusted frequently in attempts to change pressure points without moving her from Sitting (neuro) position. She has had spasms that look similar to hiccups to move her torso and shoulders. BIZ and EEG continue to show the burst suppression pattern. Pt has no eye opening or other purposeful movement. At midnight I tried very gently to bathe the skin I could reach with out moving her and it was still too much and an event was triggered and manual bagging was needed at 0000 and 0015 for approximately 5 minutes each time.
[2020-11-09] MEDS: albuterol 2.5 MG/3 ML nebule CONTNEB SCH ×22 (00:37→21:47)
[2020-11-09] MEDS: ipratropium/albuterol 3ml nebule NEB SCH (03:00)
[2020-11-09 03:06] LABS: ABG BASE EXCESS -3.2 mmol/L (-2.0-2.0); ABG OXYGEN SATURATION 97.8 % (94-97); ABG PCO2 (T) 38.5 mmHg (32.0-45.0); ABG PO2 (T) 106.5 mmHg (75.0-100.0); FCOHb 0.2 % (0.0-3.9); FMetHb 0.3 % (0.0-1.5); FO2Hb 97.3 % (94-97); PATIENT TEMPERATURE 36.3; PEEP 5 cm H2O; RESPIRATORY RATE 16 b/min; TOTAL HEMOGLOBIN 10.9 G/dl (12.0-16.0)
[2020-11-09] MEDS: NORepinephrine 8mg/ 250ml NS 250 ML IV SCH ×2 (03:11→17:21)
[2020-11-09 03:37] LABS: BASOPHILS % (AUTO) 0.1 % (0-1); EOSINOPHILS % (AUTO) 0 % (0-6); HEMATOCRIT 31.4 % (35.0-45.0); HEMOGLOBIN 10.3 g/dl (12.0-16.0); LYMPHOCYTES # (AUTO) 0.3 X10'3 (1.1-4.8); LYMPHOCYTES % (AUTO) 1.5 % (21-51); MEAN CORPUSCULAR HEMOGLOBIN 30.8 PG (27.0-31.0); MEAN CORPUSCULAR HGB CONC 32.9 g/dL (33.0-36.5); MEAN CORPUSCULAR VOLUME 93.4 FL (78-98); MEAN PLATELET VOLUME 8.7 FL (7.4-10.4); MONOCYTES # (AUTO) 0.6 X10'3 (0-0.9); MONOCYTES % (AUTO) 3.3 % (2-12); NEUTROPHILS # (AUTO) 17.2 X10'3 (1.8-7.7); NEUTROPHILS % (AUTO) 95.1 % (42-75); PLATELET COUNT 218 X10'3 (140-440); RED BLOOD COUNT 3.36 X10'6 (4.20-5.60); RED CELL DISTRIBUTION WIDTH 14.3 % (11.5-14.5); WHITE BLOOD COUNT 18.1 X10'3 (4.5-11.0)
[2020-11-09 03:49] LABS: ALANINE AMINOTRANSFERASE 32 U/L (12-78); ALBUMIN 2.4 G/DL (3.4-5.0); ALBUMIN/GLOBULIN RATIO 0.9 (1.1-1.5); ALKALINE PHOSPHATASE 49 IU/L (46-116); ANION GAP 10 (8-16); ASPARTATE AMINO TRANSFERASE 41 U/L (10-37); BILIRUBIN,TOTAL 0.1 MG/DL (0.1-1.0); BLOOD UREA NITROGEN 4 MG/DL (7-18); BUN/CREATININE RATIO 10.3 (6.6-38.0); CALCIUM 6.9 MG/DL (8.5-10.1); CHLORIDE 112 MMOL/L (99-107); CREATININE 0.39 MG/DL (0.40-0.90); GLUCOSE 151 MG/DL (70-104); POTASSIUM 3.7 MMOL/L (3.5-5.1); SODIUM 144 MMOL/L (135-145); TOTAL PROTEIN 5.1 G/DL (6.4-8.2); eGFR > 90 ML/MIN
[2020-11-09 03:50] LABS: MAGNESIUM 2.1 MG/DL (1.5-2.4); PHOSPHORUS 1.9 MG/DL (2.3-4.5); TRIGLYCERIDES 175 MG/DL (20-135)
[2020-11-09] MEDS: potassium Cl 20mEq/100mL bag 100 ML IV PRN ×3 (05:11→09:10)
--- NOTE | 2020-11-09 06:37 | NUR ---
Problems reprioritized. Patient report given, questions answered & plan of care reviewed with Ollie RADER.
--- NOTE | 2020-11-09 06:46 | NUR ---
Patient in room ICU 2041. I have received report from DIOR Bustos and had the opportunity to ask questions and assume patient care.
[2020-11-09] MEDS: propofol 1000mg/100ml bottle 100 ML IV SCH ×2 (06:59→16:54)
--- NOTE | 2020-11-09 07:28 | NUR ---
Wedding band removed from left hand due to increasing edema. Placed in labeled denture cup and placed in bedside drawer.
[2020-11-09] MEDS: lisinopril 2.5mg tablet PO SCH (08:00)
[2020-11-09] MEDS: carVEDilol 3.125mg tablet OGT SCH ×2 (08:00→21:11)
[2020-11-09] MEDS: K, MAG and/or Phos replacement - Verify level? MC SCH (08:00)
[2020-11-09] MEDS: famotidine/PF 10 mg/ml inj IV SCH ×2 (08:21→21:11)
[2020-11-09] MEDS: methylPREDNISolone sod succ/PF 40mg inj. IV SCH ×2 (08:21→21:11)
[2020-11-09] MEDS: aspirin 81mg tab.chew OGT SCH (08:21)
[2020-11-09] MEDS: levetiracetam-NS 1000mg/100ml 100 ML IV SCH ×2 (08:22→21:10)
--- NOTE | 2020-11-09 10:38 | NUR ---
Pt's Ed Risk at bedside. Pt's wedding band sent home with him. Discussed plan of care.
[2020-11-09 11:56] LABS: TROPONIN I 1.36 NG/ML (0.0-0.05)
[2020-11-09] MEDS: meropenem inj 1 GM in normal saline 100ml IV soln 100 ML IV SCH ×2 (12:40→20:00)
--- NOTE | 2020-11-09 13:12 | NUR ---
TF Consult: Trickle TF at 20ml/hr to start today per MD. Pt off cooling now rewarmed per RN. LBChelsie 11/06; TF recs below. Will monitor for TF tolerance and advancement as medically indicated. Recommendations: 1) Continuous trickle TF per MD using Vital AF at 20ml/hr; to provide 480ml volume, 576kcals, 389ml free water, and 36g protein 2) IF to advance; Vital AF with goal rate of 60 mL/hr. To provide 1440ml volume, 1728 kcals, 1166ml free water, and 108g protein 3) additional water flush per MD w/ trickle feeds; IF to advance water flush 200ml Q4H 4) prealbumin q Tuesday/; daily weights 5) Routine bowel care Addendum: 11/09/20 at [address] Amended: Links added.
[2020-11-09] MEDS: azithromycin 200mg/5ml oral suspension 15ml bottle PO SCH (13:15)
[2020-11-09 14:23] LABS: ALANINE AMINOTRANSFERASE 32 U/L (12-78); ALBUMIN 2.3 G/DL (3.4-5.0); ALBUMIN/GLOBULIN RATIO 0.9 (1.1-1.5); ALKALINE PHOSPHATASE 47 IU/L (46-116); ANION GAP 11 (8-16); ASPARTATE AMINO TRANSFERASE 52 U/L (10-37); BILIRUBIN,TOTAL 0.2 MG/DL (0.1-1.0); BLOOD UREA NITROGEN 5 MG/DL (7-18); BUN/CREATININE RATIO 8.8 (6.6-38.0); CALCIUM 7.1 MG/DL (8.5-10.1); CHLORIDE 111 MMOL/L (99-107); CREATININE 0.57 MG/DL (0.40-0.90); GLUCOSE 145 MG/DL (70-104); MAGNESIUM 1.9 MG/DL (1.5-2.4); PHOSPHORUS 1.8 MG/DL (2.3-4.5); POTASSIUM 3.6 MMOL/L (3.5-5.1); SODIUM 142 MMOL/L (135-145); TOTAL CARBON DIOXIDE 19.7 MMOL/L (24-32); eGFR > 90 ML/MIN
[2020-11-09 14:56] LABS: SODIUM,URINE RANDOM 191 MEQ/L
[2020-11-09 15:02] LABS: ABG BASE EXCESS -0.4 mmol/L (-2.0-2.0); ABG HCO3 18.7 mmol/L (22.0-26.0); ABG OXYGEN SATURATION 98.7 % (94-97); ABG PCO2 (T) 17.5 mmHg (32.0-45.0); ABG PO2 (T) 179.6 mmHg (75.0-100.0); FCOHb 0.1 % (0.0-3.9); FMetHb 0.3 % (0.0-1.5); FO2Hb 98.3 % (94-97); PATIENT TEMPERATURE 37.5; PEEP 5 cm H2O; RESPIRATORY RATE 16 b/min; TIDAL VOLUME 850 mL; TOTAL HEMOGLOBIN 10.1 G/dl (12.0-16.0)
[2020-11-09 15:24] LABS: OSMOLALITY UA 451 MOSM/K (50-1400)
[2020-11-09 16:35] LABS: ABG HCO3 19.4 mmol/L (22.0-26.0); ABG OXYGEN SATURATION 98.7 % (94-97); ABG PCO2 (T) 21.3 mmHg (32.0-45.0); ABG PO2 (T) 170.9 mmHg (75.0-100.0); FCOHb 0.2 % (0.0-3.9); FMetHb 0.5 % (0.0-1.5); PATIENT TEMPERATURE 37.6; PEEP 5 cm H2O; RESPIRATORY RATE 16 b/min; TIDAL VOLUME 580 mL; TOTAL HEMOGLOBIN 10.2 G/dl (12.0-16.0)
[2020-11-09] MEDS: heparin 25,000 UNIT/250ml bag 250 ML IV SCH (16:37)
--- NOTE | 2020-11-09 18:12 | NUR ---
Problems reprioritized. Patient report given, questions answered & plan of care reviewed with DIOR Tripathi.
[2020-11-09 19:01] LABS: ALANINE AMINOTRANSFERASE 27 U/L (12-78); ALBUMIN 2.3 G/DL (3.4-5.0); ALBUMIN/GLOBULIN RATIO 0.9 (1.1-1.5); ALKALINE PHOSPHATASE 47 IU/L (46-116); ANION GAP 9 (8-16); ASPARTATE AMINO TRANSFERASE 52 U/L (10-37); BILIRUBIN,TOTAL 0.2 MG/DL (0.1-1.0); BLOOD UREA NITROGEN 4 MG/DL (7-18); BUN/CREATININE RATIO 8.7 (6.6-38.0); CALCIUM 7.3 MG/DL (8.5-10.1); CHLORIDE 111 MMOL/L (99-107); CREATININE 0.46 MG/DL (0.40-0.90); GLUCOSE 135 MG/DL (70-104); PHOSPHORUS 2.2 MG/DL (2.3-4.5); POTASSIUM 3.4 MMOL/L (3.5-5.1); SODIUM 141 MMOL/L (135-145); TOTAL CARBON DIOXIDE 20.8 MMOL/L (24-32); TOTAL PROTEIN 4.8 G/DL (6.4-8.2); eGFR > 90 ML/MIN
[2020-11-09] MEDS: atorvastatin 20mg tablet OGT SCH (21:11)
[2020-11-09] MEDS ORDERED: albuterol 2.5 MG/3 ML nebule NEB PRN (22:35)
[2020-11-09] MEDS: albuterol 2.5 MG/3 ML nebule NEB SCH (22:44)
[2020-11-10] VITALS (23 sets, daily range): BP systolic 91–124; BP diastolic 51–75
[2020-11-10] MEDS: albuterol 2.5 MG/3 ML nebule NEB SCH ×12 (00:53→23:24)
[2020-11-10 02:45] LABS: BASOPHILS % (AUTO) 0.2 % (0-1); EOSINOPHILS % (AUTO) 0 % (0-6); HEMATOCRIT 29.5 % (35.0-45.0); LYMPHOCYTES # (AUTO) 0.5 X10'3 (1.1-4.8); LYMPHOCYTES % (AUTO) 3.7 % (21-51); MEAN CORPUSCULAR HGB CONC 33.8 g/dL (33.0-36.5); MEAN CORPUSCULAR VOLUME 91.8 FL (78-98); MEAN PLATELET VOLUME 8.9 FL (7.4-10.4); MONOCYTES # (AUTO) 0.3 X10'3 (0-0.9); MONOCYTES % (AUTO) 2.4 % (2-12); NEUTROPHILS # (AUTO) 13.1 X10'3 (1.8-7.7); NEUTROPHILS % (AUTO) 93.7 % (42-75); PLATELET COUNT 148 X10'3 (140-440); RED BLOOD COUNT 3.21 X10'6 (4.20-5.60); RED CELL DISTRIBUTION WIDTH 14.6 % (11.5-14.5)
[2020-11-10 03:06] LABS: ALANINE AMINOTRANSFERASE 32 U/L (12-78); ALBUMIN 2.3 G/DL (3.4-5.0); ALBUMIN/GLOBULIN RATIO 0.8 (1.1-1.5); ALKALINE PHOSPHATASE 62 IU/L (46-116); ANION GAP 9 (8-16); ASPARTATE AMINO TRANSFERASE 61 U/L (10-37); BILIRUBIN,TOTAL 0.2 MG/DL (0.1-1.0); BLOOD UREA NITROGEN 5 MG/DL (7-18); BUN/CREATININE RATIO 10.2 (6.6-38.0); CALCIUM 7.7 MG/DL (8.5-10.1); CHLORIDE 112 MMOL/L (99-107); CREATININE 0.49 MG/DL (0.40-0.90); GLUCOSE 158 MG/DL (70-104); MAGNESIUM 2.1 MG/DL (1.5-2.4); POTASSIUM 3.6 MMOL/L (3.5-5.1); PREALBUMIN 15.3 MG/DL (19-36); SODIUM 144 MMOL/L (135-145); TOTAL CARBON DIOXIDE 22.7 MMOL/L (24-32); TOTAL PROTEIN 5.1 G/DL (6.4-8.2); eGFR > 90 ML/MIN
[2020-11-10 03:34] LABS: ABG BASE EXCESS 0.6 mmol/L (-2.0-2.0); ABG HCO3 21.1 mmol/L (22.0-26.0); ABG OXYGEN SATURATION 98.8 % (94-97); ABG PCO2 (T) 22.2 mmHg (32.0-45.0); ABG PO2 (T) 149.3 mmHg (75.0-100.0); FCOHb 0.3 % (0.0-3.9); FMetHb 0.3 % (0.0-1.5); FO2Hb 98.2 % (94-97); PATIENT TEMPERATURE 36.8; PEEP 5 cm H2O; RESPIRATORY RATE 14 b/min; TOTAL HEMOGLOBIN 10.8 G/dl (12.0-16.0)
[2020-11-10] MEDS: meropenem inj 1 GM in normal saline 100ml IV soln 100 ML IV SCH (04:00)
[2020-11-10] MEDS: mineral oil/petrolatum ophthal oint EACHEYE SCH ×7 (04:00→23:36)
[2020-11-10] MEDS: guaiFENesin/DM 10ml UD oral syrup OGT SCH ×7 (04:00→23:36)
[2020-11-10] MEDS ORDERED: albumin (Human) 5% 250ml 250 ML IV ONE (05:20)
[2020-11-10] MEDS: propofol 1000mg/100ml bottle 100 ML IV SCH ×2 (05:37→12:33)
[2020-11-10] MEDS: methylPREDNISolone sod succ/PF 40mg inj. IV SCH ×2 (08:00→20:12)
[2020-11-10] MEDS: carVEDilol 3.125mg tablet OGT SCH ×2 (08:00→20:10)
[2020-11-10] MEDS: famotidine/PF 10 mg/ml inj IV SCH ×2 (08:00→20:12)
[2020-11-10] MEDS: aspirin 81mg tab.chew OGT SCH (08:00)
[2020-11-10] MEDS: lisinopril 2.5mg tablet PO SCH (08:00)
[2020-11-10] MEDS: K, MAG and/or Phos replacement - Verify level? MC SCH (08:00)
[2020-11-10] MEDS: azithromycin 200mg/5ml oral suspension 15ml bottle PO SCH (08:01)
[2020-11-10] MEDS: levetiracetam-NS 1000mg/100ml 100 ML IV SCH ×2 (08:01→20:16)
[2020-11-10] MEDS ORDERED: MEROPENEM IV SCH (08:12)
[2020-11-10] MEDS ORDERED: NORMAL SALINE IV SCH (08:12)
[2020-11-10 10:39] LABS: ALANINE AMINOTRANSFERASE 35 U/L (12-78); ALBUMIN 2.4 G/DL (3.4-5.0); ALBUMIN/GLOBULIN RATIO 0.9 (1.1-1.5); ALKALINE PHOSPHATASE 56 IU/L (46-116); ANION GAP 6 (8-16); ASPARTATE AMINO TRANSFERASE 58 U/L (10-37); BILIRUBIN,TOTAL 0.2 MG/DL (0.1-1.0); BLOOD UREA NITROGEN 6 MG/DL (7-18); BUN/CREATININE RATIO 14.6 (6.6-38.0); CALCIUM 7.5 MG/DL (8.5-10.1); CHLORIDE 111 MMOL/L (99-107); CREATININE 0.41 MG/DL (0.40-0.90); GLUCOSE 147 MG/DL (70-104); MAGNESIUM 2.2 MG/DL (1.5-2.4); PHOSPHORUS 2.8 MG/DL (2.3-4.5); POTASSIUM 3.7 MMOL/L (3.5-5.1); SODIUM 142 MMOL/L (135-145); TOTAL CARBON DIOXIDE 24.8 MMOL/L (24-32); TOTAL PROTEIN 5.1 G/DL (6.4-8.2); eGFR > 90 ML/MIN
[2020-11-10] MEDS ORDERED: valproate sod 250mg/5ml UD oral syrup PO ONE (16:50)
[2020-11-10 17:33] LABS: ALANINE AMINOTRANSFERASE 35 U/L (12-78); ALBUMIN 2.4 G/DL (3.4-5.0); ALBUMIN/GLOBULIN RATIO 0.9 (1.1-1.5); ALKALINE PHOSPHATASE 55 IU/L (46-116); ANION GAP 4 (8-16); ASPARTATE AMINO TRANSFERASE 55 U/L (10-37); BILIRUBIN,TOTAL 0.2 MG/DL (0.1-1.0); BLOOD UREA NITROGEN 8 MG/DL (7-18); BUN/CREATININE RATIO 23.5 (6.6-38.0); CALCIUM 7.7 MG/DL (8.5-10.1); CHLORIDE 110 MMOL/L (99-107); CREATININE 0.34 MG/DL (0.40-0.90); GLUCOSE 151 MG/DL (70-104); MAGNESIUM 2.2 MG/DL (1.5-2.4); PHOSPHORUS 3.1 MG/DL (2.3-4.5); POTASSIUM 4.1 MMOL/L (3.5-5.1); SODIUM 143 MMOL/L (135-145); TOTAL CARBON DIOXIDE 28.6 MMOL/L (24-32); TOTAL PROTEIN 5.2 G/DL (6.4-8.2); eGFR > 90 ML/MIN
--- NOTE | 2020-11-10 18:37 | NUR ---
Problems reprioritized. Patient report given, questions answered & plan of care reviewed with DIOR Morrison.
[2020-11-10] MEDS: normal saline 1000ml 1,000 ML IV SCH (18:39)
[2020-11-10] MEDS: atorvastatin 20mg tablet OGT SCH (20:10)
[2020-11-10] MEDS: lactobacillus rhamnosus 10,000 MMU CELLS/CAPSULE PO SCH (20:11)
[2020-11-10] MEDS: enoxaparin 40mg/0.4ml syringe SUBCUT SCH (20:11)
[2020-11-10 20:52] LABS: ANION GAP 7 (8-16); BLOOD UREA NITROGEN 8 MG/DL (7-18); BUN/CREATININE RATIO 15.7 (6.6-38.0); CALCIUM 7.9 MG/DL (8.5-10.1); CHLORIDE 109 MMOL/L (99-107); CREATININE 0.51 MG/DL (0.40-0.90); GLUCOSE 140 MG/DL (70-104); POTASSIUM 4.1 MMOL/L (3.5-5.1); SODIUM 142 MMOL/L (135-145); TOTAL CARBON DIOXIDE 26.4 MMOL/L (24-32); eGFR > 90 ML/MIN
[2020-11-10 20:53] LABS: ALANINE AMINOTRANSFERASE 35 U/L (12-78); ALBUMIN 2.6 G/DL (3.4-5.0); ALBUMIN/GLOBULIN RATIO 0.9 (1.1-1.5); ALKALINE PHOSPHATASE 59 IU/L (46-116); ASPARTATE AMINO TRANSFERASE 53 U/L (10-37); BILIRUBIN,TOTAL 0.2 MG/DL (0.1-1.0); MAGNESIUM 2.2 MG/DL (1.5-2.4); PHOSPHORUS 2.9 MG/DL (2.3-4.5); TOTAL PROTEIN 5.4 G/DL (6.4-8.2)
[2020-11-10] MEDS: LORazepam 2 mg/ml vial IV PRN (21:20)
--- NOTE | 2020-11-10 21:25 | NUR ---
RT was with patient and she started having a seizure, Ativan 2mg was given.
[2020-11-10] MEDS: valproate sod 250mg/5ml UD oral syrup PO SCH (23:37)
[2020-11-11] VITALS (24 sets, daily range): BP systolic 96–126; BP diastolic 53–73
[2020-11-11] MEDS: LORazepam 2 mg/ml vial IV PRN (02:08)
[2020-11-11] MEDS: propofol 1000mg/100ml bottle 100 ML IV SCH ×3 (02:30→16:50)
[2020-11-11] MEDS: albuterol 2.5 MG/3 ML nebule NEB SCH ×6 (02:40→13:00)
[2020-11-11 02:59] LABS: BASOPHILS % (AUTO) 0.1 % (0-1); EOSINOPHILS % (AUTO) 0 % (0-6); HEMOGLOBIN 9.5 g/dl (12.0-16.0); LYMPHOCYTES # (AUTO) 0.8 X10'3 (1.1-4.8); LYMPHOCYTES % (AUTO) 6.5 % (21-51); MEAN CORPUSCULAR HEMOGLOBIN 31.3 PG (27.0-31.0); MEAN CORPUSCULAR VOLUME 92.1 FL (78-98); MEAN PLATELET VOLUME 8.5 FL (7.4-10.4); MONOCYTES # (AUTO) 0.3 X10'3 (0-0.9); MONOCYTES % (AUTO) 2.4 % (2-12); NEUTROPHILS # (AUTO) 11.8 X10'3 (1.8-7.7); PLATELET COUNT 148 X10'3 (140-440); RED BLOOD COUNT 3.04 X10'6 (4.20-5.60); RED CELL DISTRIBUTION WIDTH 14.7 % (11.5-14.5); WHITE BLOOD COUNT 12.9 X10'3 (4.5-11.0)
[2020-11-11 03:12] LABS: ALANINE AMINOTRANSFERASE 48 U/L (12-78); ALBUMIN 2.4 G/DL (3.4-5.0); ALBUMIN/GLOBULIN RATIO 0.8 (1.1-1.5); ALKALINE PHOSPHATASE 60 IU/L (46-116); ANION GAP 9 (8-16); ASPARTATE AMINO TRANSFERASE 52 U/L (10-37); BILIRUBIN,TOTAL 0.2 MG/DL (0.1-1.0); BLOOD UREA NITROGEN 8 MG/DL (7-18); BUN/CREATININE RATIO 14.8 (6.6-38.0); CALCIUM 7.8 MG/DL (8.5-10.1); CHLORIDE 109 MMOL/L (99-107); CREATININE 0.54 MG/DL (0.40-0.90); GLUCOSE 150 MG/DL (70-104); MAGNESIUM 2.2 MG/DL (1.5-2.4); PHOSPHORUS 2.1 MG/DL (2.3-4.5); SODIUM 145 MMOL/L (135-145); TOTAL CARBON DIOXIDE 26.8 MMOL/L (24-32); TOTAL PROTEIN 5.3 G/DL (6.4-8.2); eGFR > 90 ML/MIN
[2020-11-11 04:02] LABS: ABG BASE EXCESS 1.5 mmol/L (-2.0-2.0); ABG HCO3 25.3 mmol/L (22.0-26.0); ABG OXYGEN SATURATION 98.1 % (94-97); ABG PCO2 (T) 35.8 mmHg (32.0-45.0); ABG PO2 (T) 110.4 mmHg (75.0-100.0); FCOHb 0.2 % (0.0-3.9); FMetHb 0.2 % (0.0-1.5); FO2Hb 97.7 % (94-97); PATIENT TEMPERATURE 36.4; PEEP 5 cm H2O; RESPIRATORY RATE 10 b/min; TOTAL HEMOGLOBIN 10.8 G/dl (12.0-16.0)
[2020-11-11] MEDS ORDERED: calcium chloride inj. 1,000 MG in normal saline 100ml IV soln 100 ML IV ONE (06:05)
--- NOTE | 2020-11-11 06:11 | NUR ---
Problems reprioritized. Patient report given, questions answered & plan of care reviewed with DIOR Holguin.
[2020-11-11] MEDS ORDERED: calcium chloride inj. 1,000 MG in normal saline 100ml IV soln 90 ML IV ONE (06:30)
[2020-11-11] MEDS: lactobacillus rhamnosus 10,000 MMU CELLS/CAPSULE PO SCH ×2 (07:54→20:08)
[2020-11-11] MEDS: valproate sod 250mg/5ml UD oral syrup PO SCH (07:54)
[2020-11-11] MEDS: guaiFENesin/DM 10ml UD oral syrup OGT SCH ×5 (07:54→20:07)
[2020-11-11] MEDS: aspirin 81mg tab.chew OGT SCH (07:54)
[2020-11-11] MEDS: carVEDilol 3.125mg tablet OGT SCH ×2 (07:54→20:08)
[2020-11-11] MEDS: atorvastatin 20mg tablet OGT SCH (07:54)
[2020-11-11] MEDS: lisinopril 2.5mg tablet PO SCH (07:54)
[2020-11-11] MEDS: azithromycin 200mg/5ml oral suspension 15ml bottle PO SCH (07:54)
[2020-11-11] MEDS: mineral oil/petrolatum ophthal oint EACHEYE SCH ×5 (07:55→20:08)
[2020-11-11] MEDS: famotidine/PF 10 mg/ml inj IV SCH ×2 (07:55→20:07)
[2020-11-11] MEDS: methylPREDNISolone sod succ/PF 40mg inj. IV SCH ×2 (07:55→20:07)
[2020-11-11] MEDS: levetiracetam-NS 1000mg/100ml 100 ML IV SCH ×2 (07:55→20:08)
[2020-11-11] MEDS: K, MAG and/or Phos replacement - Verify level? MC SCH (08:00)
--- NOTE | 2020-11-11 11:26 | NUR ---
TF Consult 11/11: Pt tolerating trickle TF at 20ml/hr w/ TF to advance to RD recommended goal today per MD. Propofol to wean today per medical donation professional at rounds. TF recs below; will monitor for tolerance and adjustment needs as medically indicated. LBM 11/06; would benefit from routine bowel care this admit. Will continue to monitor. Recommendations: 1) Continuous TF per MD using Vital AF with goal rate of 60 mL/hr. To provide 1440ml volume, 1728 kcals, 1166ml free water, and 108g protein 2) additional water flush 200ml Q4H 3) prealbumin q Tuesday/; daily weights 4) Routine bowel care; 5 days constipation Addendum: 11/11/20 at [address] Amended: Links added. Addendum: 11/11/20 at [address] Recommendations: 1) Continuous TF per MD using Vital AF with goal rate of 60 mL/hr. To provide 1440ml volume, 1728 kcals, 1166ml free water, and 108g protein. Initiate at 40ml/hr since tolerating prior 20ml/hr trickle.
[2020-11-11] MEDS ORDERED: acetaminophen 325mg tablet OGT PRN ×2 (12:38)
[2020-11-11] MEDS ORDERED: dextrose ORAL solution 15 GM/59 ML bottle OGT PRN ×2 (12:39)
[2020-11-11] MEDS ORDERED: Neutra Phos packet OGT PRN (12:39)
[2020-11-11] MEDS: valproate sod 250mg/5ml UD oral syrup OGT SCH (15:06)
[2020-11-11] MEDS: ipratropium/albuterol 3ml nebule NEB SCH ×2 (15:10→20:55)
[2020-11-11] MEDS: NORepinephrine 8mg/ 250ml NS 250 ML IV SCH (17:35)
--- NOTE | 2020-11-11 17:58 | NUR ---
in to see patient and he states per his discussion with md the plan is to give more time over the next 2-3 days and if no significant improvement is seen the family and he have agreed upon withdrawing life support and making her comfort care. Tearful but states he is glad he had the discussion with his about her wishes about a year prior to this.
--- NOTE | 2020-11-11 18:10 | NUR ---
Patient in room ICU 2041. I have received report from DIOR Holguin and had the opportunity to ask questions and assume patient care. at the bedside, I will continue to monitor.
[2020-11-11] MEDS: enoxaparin 40mg/0.4ml syringe SUBCUT SCH (20:08)
[2020-11-12] VITALS (24 sets, daily range): BP systolic 89–127; BP diastolic 50–82
[2020-11-12] MEDS: guaiFENesin/DM 10ml UD oral syrup OGT SCH ×6 (00:09→19:42)
[2020-11-12] MEDS: valproate sod 250mg/5ml UD oral syrup OGT SCH ×3 (00:09→15:22)
[2020-11-12] MEDS: mineral oil/petrolatum ophthal oint EACHEYE SCH ×6 (00:10→19:42)
[2020-11-12] MEDS: LORazepam 2 mg/ml vial IV PRN (02:17)
[2020-11-12] MEDS: propofol 1000mg/100ml bottle 100 ML IV SCH ×4 (02:18→16:10)
[2020-11-12 03:15] LABS: BASOPHILS % (AUTO) 0.2 % (0-1); EOSINOPHILS % (AUTO) 0.1 % (0-6); HEMATOCRIT 31.1 % (35.0-45.0); HEMOGLOBIN 10.4 g/dl (12.0-16.0); LYMPHOCYTES # (AUTO) 0.8 X10'3 (1.1-4.8); LYMPHOCYTES % (AUTO) 6.5 % (21-51); MEAN CORPUSCULAR HEMOGLOBIN 31.1 PG (27.0-31.0); MEAN CORPUSCULAR HGB CONC 33.3 g/dL (33.0-36.5); MEAN CORPUSCULAR VOLUME 93.4 FL (78-98); MEAN PLATELET VOLUME 8.1 FL (7.4-10.4); MONOCYTES # (AUTO) 0.5 X10'3 (0-0.9); MONOCYTES % (AUTO) 3.8 % (2-12); NEUTROPHILS # (AUTO) 10.8 X10'3 (1.8-7.7); NEUTROPHILS % (AUTO) 89.4 % (42-75); PLATELET COUNT 205 X10'3 (140-440); RED BLOOD COUNT 3.33 X10'6 (4.20-5.60); RED CELL DISTRIBUTION WIDTH 14.4 % (11.5-14.5)
[2020-11-12] MEDS: ipratropium/albuterol 3ml nebule NEB SCH ×4 (03:16→20:50)
[2020-11-12 03:21] LABS: ALANINE AMINOTRANSFERASE 51 U/L (12-78); ALBUMIN 2.4 G/DL (3.4-5.0); ALBUMIN/GLOBULIN RATIO 0.8 (1.1-1.5); ALKALINE PHOSPHATASE 61 IU/L (46-116); ANION GAP 8 (8-16); ASPARTATE AMINO TRANSFERASE 42 U/L (10-37); BILIRUBIN,TOTAL 0.2 MG/DL (0.1-1.0); CALCIUM 7.8 MG/DL (8.5-10.1); CHLORIDE 106 MMOL/L (99-107); CREATININE 0.64 MG/DL (0.40-0.90); GLUCOSE 144 MG/DL (70-104); MAGNESIUM 1.8 MG/DL (1.5-2.4); PHOSPHORUS 2.9 MG/DL (2.3-4.5); POTASSIUM 3.7 MMOL/L (3.5-5.1); SODIUM 145 MMOL/L (135-145); TOTAL CARBON DIOXIDE 31.2 MMOL/L (24-32); TOTAL PROTEIN 5.3 G/DL (6.4-8.2); eGFR > 90 ML/MIN
[2020-11-12 03:28] LABS: ABG HCO3 28.8 mmol/L (22.0-26.0); ABG OXYGEN SATURATION 96.9 % (94-97); ABG PCO2 (T) 37.1 mmHg (32.0-45.0); ABG PO2 (T) 91.7 mmHg (75.0-100.0); FCOHb 0.3 % (0.0-3.9); FMetHb 0.3 % (0.0-1.5); FO2Hb 96.3 % (94-97); PATIENT TEMPERATURE 38.1; PEEP 5 cm H2O; RESPIRATORY RATE 10 b/min; TOTAL HEMOGLOBIN 11.2 G/dl (12.0-16.0)
[2020-11-12 03:32] LABS: BLOOD UREA NITROGEN 12 MG/DL (7-18); BUN/CREATININE RATIO 18.8 (6.6-38.0)
--- NOTE | 2020-11-12 06:29 | NUR ---
Problems reprioritized. Patient report given, questions answered & plan of care reviewed with DIOR Laura.
--- NOTE | 2020-11-12 06:30 | NUR ---
Patient in room ICU 2041. I have received report from Tamiko RADER and had the opportunity to ask questions and assume patient care.
[2020-11-12] MEDS: carVEDilol 3.125mg tablet OGT SCH ×2 (07:26→19:43)
[2020-11-12] MEDS: lisinopril 2.5mg tablet OGT SCH (07:26)
[2020-11-12] MEDS: levetiracetam-NS 1000mg/100ml 100 ML IV SCH (07:43)
[2020-11-12] MEDS: azithromycin 200mg/5ml oral suspension 15ml bottle OGT SCH (07:44)
[2020-11-12] MEDS: methylPREDNISolone sod succ/PF 40mg inj. IV SCH ×2 (07:44→19:43)
[2020-11-12] MEDS: aspirin 81mg tab.chew OGT SCH (07:44)
[2020-11-12] MEDS: famotidine/PF 10 mg/ml inj IV SCH ×2 (07:44→19:42)
[2020-11-12] MEDS: lactobacillus rhamnosus 10,000 MMU CELLS/CAPSULE PO SCH ×2 (07:44→19:42)
[2020-11-12] MEDS: K, MAG and/or Phos replacement - Verify level? MC SCH (08:00)
[2020-11-12] MEDS: normal saline 1000ml 1,000 ML IV SCH (09:38)
[2020-11-12] MEDS ORDERED: magnesium 4gm in 100ml NS 100 ML IV PRN (12:00)
[2020-11-12] MEDS ORDERED: magnesium 2GM in 50ml NS 50 ML IV PRN (12:00)
[2020-11-12] MEDS: clonazePAM 1mg tablet PO SCH ×2 (13:37→20:51)
--- NOTE | 2020-11-12 18:25 | NUR ---
Problems reprioritized. Patient report given, questions answered & plan of care reviewed with Evangelina RADER.
[2020-11-12] MEDS: NORepinephrine 8mg/ 250ml NS 250 ML IV SCH (18:59)
[2020-11-12] MEDS: levetiracetam inj 1,500 MG in normal saline 100ml IV soln 85 ML IV SCH (19:42)
[2020-11-12] MEDS: enoxaparin 40mg/0.4ml syringe SUBCUT SCH (19:43)
[2020-11-12] MEDS ORDERED: levetiracetam inj 500 MG in normal saline 100ml IV soln 95 ML IV SCH (20:00)
[2020-11-12] MEDS: atorvastatin 20mg tablet OGT SCH (20:51)
--- NOTE | 2020-11-12 23:14 | NUR ---
[facility] Case #[id number]
[2020-11-13] VITALS (24 sets, daily range): BP systolic 98–140; BP diastolic 54–71
[2020-11-13] MEDS: guaiFENesin/DM 10ml UD oral syrup OGT SCH ×6 (00:48→20:37)
[2020-11-13] MEDS: valproate sod 250mg/5ml UD oral syrup OGT SCH ×3 (00:48→16:14)
[2020-11-13] MEDS: mineral oil/petrolatum ophthal oint EACHEYE SCH ×6 (00:48→20:35)
[2020-11-13] MEDS: ipratropium/albuterol 3ml nebule NEB SCH ×4 (03:01→20:45)
[2020-11-13] MEDS: propofol 1000mg/100ml bottle 100 ML IV SCH ×5 (03:13→22:53)
[2020-11-13 03:30] LABS: BASOPHILS % (AUTO) 0 % (0-1); EOSINOPHILS % (AUTO) 0.1 % (0-6); HEMATOCRIT 32.2 % (35.0-45.0); HEMOGLOBIN 10.8 g/dl (12.0-16.0); LYMPHOCYTES # (AUTO) 0.9 X10'3 (1.1-4.8); LYMPHOCYTES % (AUTO) 7.4 % (21-51); MEAN CORPUSCULAR HEMOGLOBIN 31.4 PG (27.0-31.0); MEAN CORPUSCULAR HGB CONC 33.4 g/dL (33.0-36.5); MEAN CORPUSCULAR VOLUME 94.1 FL (78-98); MEAN PLATELET VOLUME 7.9 FL (7.4-10.4); MONOCYTES # (AUTO) 0.4 X10'3 (0-0.9); MONOCYTES % (AUTO) 3.1 % (2-12); NEUTROPHILS # (AUTO) 11.1 X10'3 (1.8-7.7); NEUTROPHILS % (AUTO) 89.4 % (42-75); PLATELET COUNT 208 X10'3 (140-440); RED BLOOD COUNT 3.43 X10'6 (4.20-5.60); RED CELL DISTRIBUTION WIDTH 14.9 % (11.5-14.5); WHITE BLOOD COUNT 12.4 X10'3 (4.5-11.0)
[2020-11-13 03:38] LABS: ABG BASE EXCESS 5.7 mmol/L (-2.0-2.0); ABG HCO3 30.5 mmol/L (22.0-26.0); ABG OXYGEN SATURATION 92.4 % (94-97); ABG PCO2 (T) 44.2 mmHg (32.0-45.0); ABG PO2 (T) 63.1 mmHg (75.0-100.0); FCOHb 0.3 % (0.0-3.9); FMetHb 0.2 % (0.0-1.5); FO2Hb 91.9 % (94-97); PATIENT TEMPERATURE 36.4; PEEP 5 cm H2O; RESPIRATORY RATE 10 b/min; TOTAL HEMOGLOBIN 11.7 G/dl (12.0-16.0)
[2020-11-13 03:57] LABS: ALANINE AMINOTRANSFERASE 78 U/L (12-78); ALBUMIN 2.2 G/DL (3.4-5.0); ALBUMIN/GLOBULIN RATIO 0.7 (1.1-1.5); ALKALINE PHOSPHATASE 60 IU/L (46-116); ANION GAP 7 (8-16); ASPARTATE AMINO TRANSFERASE 52 U/L (10-37); BILIRUBIN,TOTAL 0.2 MG/DL (0.1-1.0); BLOOD UREA NITROGEN 14 MG/DL (7-18); BUN/CREATININE RATIO 26.9 (6.6-38.0); CALCIUM 7.3 MG/DL (8.5-10.1); CHLORIDE 106 MMOL/L (99-107); CREATININE 0.52 MG/DL (0.40-0.90); GLUCOSE 195 MG/DL (70-104); MAGNESIUM 2.4 MG/DL (1.5-2.4); PHOSPHORUS 3.7 MG/DL (2.3-4.5); POTASSIUM 3.1 MMOL/L (3.5-5.1); PREALBUMIN 24.5 MG/DL (19-36); SODIUM 144 MMOL/L (135-145); TOTAL PROTEIN 5.3 G/DL (6.4-8.2); eGFR > 90 ML/MIN
--- NOTE | 2020-11-13 06:00 | NUR ---
RN Note -Shift Summary No neuro changes
[2020-11-13] MEDS: K, MAG and/or Phos replacement - Verify level? MC SCH (08:00)
[2020-11-13] MEDS: carVEDilol 3.125mg tablet OGT SCH ×2 (08:00→20:00)
[2020-11-13] MEDS: lisinopril 2.5mg tablet OGT SCH (08:00)
[2020-11-13] MEDS: famotidine/PF 10 mg/ml inj IV SCH ×2 (08:45→20:35)
[2020-11-13] MEDS: methylPREDNISolone sod succ/PF 40mg inj. IV SCH ×2 (08:45→20:35)
[2020-11-13] MEDS: levetiracetam inj 1,500 MG in normal saline 100ml IV soln 85 ML IV SCH ×2 (08:46→20:35)
[2020-11-13] MEDS: lactobacillus rhamnosus 10,000 MMU CELLS/CAPSULE PO SCH ×2 (08:46→20:37)
[2020-11-13] MEDS: clonazePAM 1mg tablet PO SCH ×3 (08:47→20:37)
[2020-11-13] MEDS: aspirin 81mg tab.chew OGT SCH (08:47)
[2020-11-13] MEDS: azithromycin 200mg/5ml oral suspension 15ml bottle OGT SCH (08:48)
[2020-11-13] MEDS ORDERED: LORazepam 2 mg/ml vial IV ONE (14:05)
[2020-11-13] MEDS ORDERED: potassium Cl 20 mEq SR tablet PO PRN ×2 (14:40)
[2020-11-13] MEDS: enoxaparin 40mg/0.4ml syringe SUBCUT SCH (20:35)
[2020-11-13] MEDS: atorvastatin 20mg tablet OGT SCH (20:37)
[2020-11-13] MEDS: NORepinephrine 8mg/ 250ml NS 250 ML IV SCH (22:05)
[2020-11-13] MEDS: LORazepam 2 mg/ml vial IV PRN (22:53)
[2020-11-14] VITALS (24 sets, daily range): BP systolic 86–140; BP diastolic 50–87
[2020-11-14] MEDS: mineral oil/petrolatum ophthal oint EACHEYE SCH ×6 (00:43→20:58)
[2020-11-14] MEDS: guaiFENesin/DM 10ml UD oral syrup OGT SCH ×6 (00:44→20:58)
[2020-11-14] MEDS: valproate sod 250mg/5ml UD oral syrup OGT SCH ×3 (00:44→15:36)
[2020-11-14 02:54] LABS: BASOPHILS % (AUTO) 0.1 % (0-1); EOSINOPHILS % (AUTO) 0.1 % (0-6); HEMATOCRIT 34.4 % (35.0-45.0); HEMOGLOBIN 11.5 g/dl (12.0-16.0); LYMPHOCYTES # (AUTO) 0.8 X10'3 (1.1-4.8); LYMPHOCYTES % (AUTO) 5.1 % (21-51); MEAN CORPUSCULAR HGB CONC 33.4 g/dL (33.0-36.5); MEAN PLATELET VOLUME 7.8 FL (7.4-10.4); MONOCYTES # (AUTO) 0.8 X10'3 (0-0.9); NEUTROPHILS # (AUTO) 14.3 X10'3 (1.8-7.7); NEUTROPHILS % (AUTO) 89.7 % (42-75); PLATELET COUNT 256 X10'3 (140-440); RED CELL DISTRIBUTION WIDTH 14.3 % (11.5-14.5)
[2020-11-14 03:05] LABS: ALANINE AMINOTRANSFERASE 68 U/L (12-78); ALBUMIN 2.3 G/DL (3.4-5.0); ALBUMIN/GLOBULIN RATIO 0.7 (1.1-1.5); ALKALINE PHOSPHATASE 63 IU/L (46-116); ANION GAP 5 (8-16); ASPARTATE AMINO TRANSFERASE 35 U/L (10-37); BILIRUBIN,TOTAL 0.3 MG/DL (0.1-1.0); BLOOD UREA NITROGEN 14 MG/DL (7-18); BUN/CREATININE RATIO 29.8 (6.6-38.0); CALCIUM 7.7 MG/DL (8.5-10.1); CHLORIDE 104 MMOL/L (99-107); CREATININE 0.47 MG/DL (0.40-0.90); GLUCOSE 162 MG/DL (70-104); MAGNESIUM 2.1 MG/DL (1.5-2.4); PHOSPHORUS 3.4 MG/DL (2.3-4.5); POTASSIUM 3.8 MMOL/L (3.5-5.1); SODIUM 141 MMOL/L (135-145); TOTAL CARBON DIOXIDE 32.2 MMOL/L (24-32); TOTAL PROTEIN 5.6 G/DL (6.4-8.2); eGFR > 90 ML/MIN
[2020-11-14] MEDS: ipratropium/albuterol 3ml nebule NEB SCH ×3 (03:43→14:33)
[2020-11-14 03:56] LABS: ABG BASE EXCESS 6.6 mmol/L (-2.0-2.0); ABG HCO3 30.7 mmol/L (22.0-26.0); ABG OXYGEN SATURATION 95.7 % (94-97); ABG PCO2 (T) 44.1 mmHg (32.0-45.0); ABG PO2 (T) 82.9 mmHg (75.0-100.0); ALLEN'S TEST POSITIVE; FCOHb 0.3 % (0.0-3.9); FMetHb 0.2 % (0.0-1.5); FO2Hb 95.2 % (94-97); PATIENT TEMPERATURE 38.1; PEEP 5 cm H2O; RESPIRATORY RATE 10 b/min
[2020-11-14] MEDS: propofol 1000mg/100ml bottle 100 ML IV SCH ×4 (04:59→17:59)
--- NOTE | 2020-11-14 06:43 | NUR ---
Patient in room CICU 2013. I have received report from Evangelina RADER and had the opportunity to ask questions and assume patient care.
[2020-11-14] MEDS: K and/or MAG REPLACEMENT MC SCH (07:11)
[2020-11-14] MEDS: K, MAG and/or Phos replacement - Verify level? MC SCH (07:11)
[2020-11-14] MEDS: methylPREDNISolone sod succ/PF 40mg inj. IV SCH ×2 (07:40→20:58)
[2020-11-14] MEDS: aspirin 81mg tab.chew OGT SCH (07:40)
[2020-11-14] MEDS: azithromycin 200mg/5ml oral suspension 15ml bottle OGT SCH (07:40)
[2020-11-14] MEDS: levetiracetam inj 1,500 MG in normal saline 100ml IV soln 85 ML IV SCH ×2 (07:40→20:58)
[2020-11-14] MEDS: carVEDilol 3.125mg tablet OGT SCH ×2 (07:41→21:02)
[2020-11-14] MEDS: famotidine/PF 10 mg/ml inj IV SCH ×2 (07:41→20:58)
[2020-11-14] MEDS: lisinopril 2.5mg tablet OGT SCH (07:41)
[2020-11-14] MEDS: lactobacillus rhamnosus 10,000 MMU CELLS/CAPSULE PO SCH (07:41)
[2020-11-14] MEDS: clonazePAM 1mg tablet PO SCH ×2 (08:03→12:41)
[2020-11-14] MEDS: normal saline 1000ml 1,000 ML IV SCH (09:38)
--- NOTE | 2020-11-14 12:46 | NUR ---
Reassessment: Pt remains intubated and tolerating TF at goal rate with GRV WNL. Per RN at critical care rounds Propofol currently running at 50 mL/hr and likely to remain at current rate. Propofol is providing 1320 kcal/day. Patient's estimated energy needs are currently being exceeded by 1275 kcal/day, d/w who agrees to adjust TF rate to limit overfeeding while on the vent. New recommendation for TF is continuous Vital High Protein at 20 mL/hr which will meet 60% of patient's estimated protein needs. Unfortunately patient's estimated protein needs will not be met if Propofol continues at current rate, d/w RN. LBM 11/14. Will continue to follow closely. Recommendations: 1) Continuous TF using Vital High Protein at 20 mL/hr in view of Propofol at 50 mL/hr. To provide: 480 mL total volume/day, 480 kcal, 42 g protein, and 401 mL water. EEN to be met with TF and Propofol. TF will only meet 60% of EPN 2) Monitor Propofol rate and adjust TF recommendations as appropriate. IF Propofol gets discontinued, resume continuous TF using Vital AF with goal rate of 60 mL/hr. To provide 1440 mL total volume/day, 1728 kcal, 1166 mL water, and 108 g protein. 3) Additional 200 mL water flush Q4H 3) Prealbumin q Tuesday/; daily weights 4) Routine bowel care Addendum: 11/14/20 at [address] Amended: Links added.
[2020-11-14] MEDS ORDERED: potassium Cl 20 mEq SR tablet OGT PRN ×2 (13:10)
[2020-11-14] MEDS ORDERED: polyethylene glycol 3350 17gm powd pack OGT PRN (13:10)
--- NOTE | 2020-11-14 18:24 | NUR ---
Problems reprioritized. Patient report given, questions answered & plan of care reviewed with Evangelina RADER.
[2020-11-14] MEDS: lactobacillus rhamnosus 10,000 MMU CELLS/CAPSULE OGT SCH (20:58)
[2020-11-14] MEDS: atorvastatin 20mg tablet OGT SCH (20:58)
[2020-11-14] MEDS: enoxaparin 40mg/0.4ml syringe SUBCUT SCH (20:59)
[2020-11-14] MEDS: clonazePAM 1mg tablet OGT SCH (21:00)
[2020-11-15] VITALS (15 sets, daily range): BP systolic 87–116; BP diastolic 50–67
[2020-11-15] MEDS: mineral oil/petrolatum ophthal oint EACHEYE SCH ×4 (00:41→11:09)
[2020-11-15] MEDS: valproate sod 250mg/5ml UD oral syrup OGT SCH ×2 (00:41→07:45)
[2020-11-15] MEDS: guaiFENesin/DM 10ml UD oral syrup OGT SCH ×4 (00:41→12:27)
[2020-11-15] MEDS: ipratropium/albuterol 3ml nebule NEB SCH ×3 (01:05→09:13)
[2020-11-15 03:36] LABS: ABG BASE EXCESS 8.5 mmol/L (-2.0-2.0); ABG HCO3 32.1 mmol/L (22.0-26.0); ABG OXYGEN SATURATION 94.1 % (94-97); ABG PCO2 (T) 42.3 mmHg (32.0-45.0); ABG PO2 (T) 73.3 mmHg (75.0-100.0); FCOHb 0.3 % (0.0-3.9); FMetHb 0.2 % (0.0-1.5); FO2Hb 93.6 % (94-97); PATIENT TEMPERATURE 38.1; PEEP 5 cm H2O; RESPIRATORY RATE 10 b/min; TOTAL HEMOGLOBIN 11.8 G/dl (12.0-16.0)
[2020-11-15 04:04] LABS: ALANINE AMINOTRANSFERASE 61 U/L (12-78); ALBUMIN 2.1 G/DL (3.4-5.0); ALBUMIN/GLOBULIN RATIO 0.7 (1.1-1.5); ALKALINE PHOSPHATASE 56 IU/L (46-116); ANION GAP 6 (8-16); ASPARTATE AMINO TRANSFERASE 37 U/L (10-37); BILIRUBIN,TOTAL 0.2 MG/DL (0.1-1.0); BLOOD UREA NITROGEN 13 MG/DL (7-18); BUN/CREATININE RATIO 36.1 (6.6-38.0); CALCIUM 7.7 MG/DL (8.5-10.1); CHLORIDE 104 MMOL/L (99-107); CREATININE 0.36 MG/DL (0.40-0.90); GLUCOSE 137 MG/DL (70-104); MAGNESIUM 1.9 MG/DL (1.5-2.4); PHOSPHORUS 4.1 MG/DL (2.3-4.5); POTASSIUM 3.6 MMOL/L (3.5-5.1); SODIUM 142 MMOL/L (135-145); TOTAL CARBON DIOXIDE 31.9 MMOL/L (24-32); TOTAL PROTEIN 5.3 G/DL (6.4-8.2); eGFR > 90 ML/MIN
[2020-11-15] MEDS: propofol 1000mg/100ml bottle 100 ML IV SCH ×2 (04:26→09:05)
[2020-11-15 04:47] LABS: BASOPHILS % (AUTO) 0.1 % (0-1); EOSINOPHILS % (AUTO) 0 % (0-6); HEMATOCRIT 33.1 % (35.0-45.0); HEMOGLOBIN 11.1 g/dl (12.0-16.0); LYMPHOCYTES # (AUTO) 0.9 X10'3 (1.1-4.8); LYMPHOCYTES % (AUTO) 6.5 % (21-51); MEAN CORPUSCULAR HEMOGLOBIN 31.4 PG (27.0-31.0); MEAN CORPUSCULAR HGB CONC 33.6 g/dL (33.0-36.5); MEAN CORPUSCULAR VOLUME 93.2 FL (78-98); MEAN PLATELET VOLUME 7.9 FL (7.4-10.4); MONOCYTES # (AUTO) 0.6 X10'3 (0-0.9); MONOCYTES % (AUTO) 4.7 % (2-12); NEUTROPHILS # (AUTO) 12.1 X10'3 (1.8-7.7); NEUTROPHILS % (AUTO) 88.7 % (42-75); PLATELET COUNT 264 X10'3 (140-440); RED BLOOD COUNT 3.55 X10'6 (4.20-5.60); RED CELL DISTRIBUTION WIDTH 14.3 % (11.5-14.5); WHITE BLOOD COUNT 13.6 X10'3 (4.5-11.0)
--- NOTE | 2020-11-15 06:37 | NUR ---
Patient in room CICU 2013. I have received report from Evangelina RADER and had the opportunity to ask questions and assume patient care.
[2020-11-15] MEDS: K, MAG and/or Phos replacement - Verify level? MC SCH (06:46)
[2020-11-15] MEDS: K and/or MAG REPLACEMENT MC SCH (06:46)
[2020-11-15] MEDS: lisinopril 2.5mg tablet OGT SCH (07:17)
[2020-11-15] MEDS: carVEDilol 3.125mg tablet OGT SCH (07:17)
[2020-11-15 07:42] LABS: PLATELET ESTIMATE NORMAL; TOTAL CELLS COUNTED 100
[2020-11-15] MEDS: lactobacillus rhamnosus 10,000 MMU CELLS/CAPSULE OGT SCH (07:45)
[2020-11-15] MEDS: clonazePAM 1mg tablet OGT SCH ×2 (07:45→12:27)
[2020-11-15] MEDS: levetiracetam inj 1,500 MG in normal saline 100ml IV soln 85 ML IV SCH (07:45)
[2020-11-15] MEDS: methylPREDNISolone sod succ/PF 40mg inj. IV SCH (07:45)
[2020-11-15] MEDS: famotidine/PF 10 mg/ml inj IV SCH (07:45)
[2020-11-15] MEDS: aspirin 81mg tab.chew OGT SCH (07:45)
--- NOTE | 2020-11-15 09:30 | NUR ---
Spoke with Ed, Ed says that he would like to place pt on comfort care at 1200 today after family sees her. Will inform the MD.
[2020-11-15] MEDS ORDERED: LORazepam 2 mg/ml vial IV PRN (13:50)
[2020-11-15] MEDS ORDERED: morphine 10mg/ml inj. IV PRN (13:50)
[2020-11-15] MEDS ORDERED: morphine 10mg/0.5ml (conc. morphine) oral syringe PO PRN (13:50)
--- NOTE | 2020-11-15 14:17 | NUR ---
pt extubsted for comfort care family at bedside Addendum: 11/15/20 at 1418 by Kinsey Ng RT Amended: Links added.
--- NOTE | 2020-11-15 14:44 | NUR ---
RN IS TO DOCUMENT YES TO ALL APPLICABLE AREAS Pronouncement of : 1. Time Physician Notified: [id number] 2. Date of : 11/15/20 3. Time of : 1430 4. DNR/Withdraw life support documented: Yes 5. Monitor strip has been placed on chart: Yes 6. Assessment process is of one-minute duration and includes following criteria: a) Patient is unresponsive to all stimuli: Yes b) Pupils fixed and non-reactive: Yes c) Auscultation of precordium reveals absence of heart tones: Yes d) Auscultation of lungs reveals absence of breath sounds: Yes e) Absence of blood pressure / all vital signs: Yes f) QRS complexes are not present on monitor / EKG strip: Yes g) Pacer spikes without capture: Yes 4. Comments: Edward at bedside and is aware.
--- NOTE | 2020-11-15 16:10 | NUR ---
Patient picked up by Steven in [place].
== END 2020-11-15 16:09 | disposition expired | DRG 207 ==
LOC: ER 18:00 → ICU 2S 20:38 → UNDOADMIN 20:38 → CICU 2S 11-13 19:04
PROVIDERS: ADMIT Internal Medicine Critical Care Medicine; ATTEND Internal Medicine Critical Care Medicine
PROC: 5A1955Z Respiratory Ventilation, Greater than 96 Consecutive Hours (ICD-10-PCS; principal; 2020-11-06)
PROC: 0BH17EZ Insertion of Endotracheal Airway into Trachea, Via Natural or Artificial Opening (ICD-10-PCS; 2020-11-06)
PROC: 0D9670Z Drainage of Stomach with Drainage Device, Via Natural or Artificial Opening (ICD-10-PCS; 2020-11-06)
PROC: 02HV33Z Insertion of Infusion Device into Superior Vena Cava, Percutaneous Approach (ICD-10-PCS; 2020-11-06)
PROC: B548ZZA Ultrasonography of Superior Vena Cava, Guidance (ICD-10-PCS; 2020-11-06)
PROC: 04HY32Z Insertion of Monitoring Device into Lower Artery, Percutaneous Approach (ICD-10-PCS; 2020-11-06)
PROC: 4A133B1 Monitoring of Arterial Pressure, Peripheral, Percutaneous Approach (ICD-10-PCS; 2020-11-06)
PROC: 4A133J1 Monitoring of Arterial Pulse, Peripheral, Percutaneous Approach (ICD-10-PCS; 2020-11-06)
PROC: 4A10X4Z Monitoring of Central Nervous Electrical Activity, External Approach (ICD-10-PCS; 2020-11-07)
PROC: 4A10X4Z Monitoring of Central Nervous Electrical Activity, External Approach (ICD-10-PCS; 2020-11-08)
PROC: 4A10X4Z Monitoring of Central Nervous Electrical Activity, External Approach (ICD-10-PCS; 2020-11-09)
PROC: 4A10X4Z Monitoring of Central Nervous Electrical Activity, External Approach (ICD-10-PCS; 2020-11-10)
PROC: 4A10X4Z Monitoring of Central Nervous Electrical Activity, External Approach (ICD-10-PCS; 2020-11-11)
PROC: 4A10X4Z Monitoring of Central Nervous Electrical Activity, External Approach (ICD-10-PCS; 2020-11-12)
PROC: 4A10X4Z Monitoring of Central Nervous Electrical Activity, External Approach (ICD-10-PCS; 2020-11-13)
DX: J96.91 Respiratory failure, unspecified with hypoxia (principal); G93.6 Cerebral edema; J45.901 Unspecified asthma with (acute) exacerbation; E87.2 Acidosis; G93.1 Anoxic brain damage, not elsewhere classified; I42.9 Cardiomyopathy, unspecified; I50.20 Unspecified systolic (congestive) heart failure; E87.6 Hypokalemia; G25.3 Myoclonus; Z20.822 Contact with and (suspected) exposure to COVID-19; I46.9 Cardiac arrest, cause unspecified; R56.9 Unspecified convulsions; Z51.5 Encounter for palliative care; I95.9 Hypotension, unspecified; R73.9 Hyperglycemia, unspecified; Z79.899 Other long term (current) drug therapy
CPT/HCPCS: 31500; 36415; 36556; 36600; 70450; 70551; 71045; 80048; 80053; 80061; 80076; 80164; 81001; 81025; 82803; 82810; 82948; 83036; 83605; 83735; 83880; 83935; 84100; 84134; 84300; 84439; 84443; 84478; 84484; 85007; 85018; 85025; 85610; 85730; 87070; 87081; 87635; 93005; 93306; 94002; 94003; 94640; 94760; 95720; 96365; 96367; 96368; 96375; 99291; A7015; G0378; J1100; J1644; J1650; J1953; J2060; J2150; J2185; J2250; J2270; J2704; J2920; J2930; J3010; J3475; J3480; J3490; J7030; J7060; J7120; P9045